=== PATIENT | female | born 1940 | race Two or more races ===

== ENCOUNTER 2019-03-13 16:04 | Inpatient (IN) | payer MEDICARE, OTHER ==
[~2019-03-13] VITALS: Ht 152.4 cm; Wt 63.0 kg
--- NOTE | 2019-03-13 16:32 | NUR ---
PT BROUGHT IN BY FAMILY FOR GENERALIZED WEAKNESS X 1 MONTH. PT ABLE TO MOVE UPPER EXTREMITIES BUT LOWER EXTREMITIES HAVE DECREASE IN STRENGTH OVER 1 MONTH PERIOD.
[2019-03-13] MEDS ORDERED: ACETAMINOPHEN 325 MG TABLET PO PRN (17:00)
[2019-03-13] MEDS ORDERED: MAG HYDROX/AL HYDROX/SIMETH 30 ML UDC PO PRN (17:00)
[2019-03-13] MEDS ORDERED: HYDROCODONE/APAP 5/325MG 1 EACH TABLET PO PRN (17:00)
[2019-03-13] MEDS ORDERED: ONDANSETRON HCL/PF 4 MG/2 ML VIAL IVP PRN (17:00)
[2019-03-13] MEDS ORDERED: MAGNESIUM HYDROXIDE 30 ML UDC PO PRN (17:00)
[2019-03-13] MEDS ORDERED: ZOLPIDEM TARTRATE 5 MG TABLET PO PRN (17:00)
[2019-03-13] MEDS ORDERED: Z GUARD REMEDY 2 OZ OINT TP PRN (17:00)
[2019-03-13] MEDS ORDERED: IV NS 0.9% 1,000 ML BAG IV ONE (17:00)
[2019-03-13] MEDS ORDERED: LORA10TA7 PO (17:36)
[2019-03-13] MEDS ORDERED: FLUT10.62 IH (17:36)
[2019-03-13] MEDS ORDERED: VASCULERA PO (17:36)
[2019-03-13] MEDS ORDERED: ERGO500040 PO (17:36)
[2019-03-13] MEDS ORDERED: DONE10TA44 PO (17:36)
[2019-03-13] MEDS ORDERED: Myrbetriq PO (17:36)
[2019-03-13 17:38] LABS: BASOPHILS % (AUTO) 0.5 % (0.0-2.0); EOSINOPHILS % (AUTO) 1.5 % (0.0-6.0); HEMATOCRIT 39 % (33-45); HEMOGLOBIN 12.8 g/dL (11.5-14.8); LYMPHOCYTES # (AUTO) 1.3 /CMM (0.8-4.8); LYMPHOCYTES % (AUTO) 14.7 % (20.0-44.0); MEAN CORPUSCULAR HGB CONC 33 g/dl (31.0-36.0); MEAN CORPUSCULAR VOLUME 91 fL (82-100); MONOCYTES # (AUTO) 0.7 /CMM (0.1-1.30); MONOCYTES % (AUTO) 8.1 % (2.0-12.0); NEUTROPHILS # (AUTO) 6.7 /CMM (1.8-8.9); NEUTROPHILS % (AUTO) 75.2 % (43.0-81.0); PLATELET COUNT (AUTO) 205 /CMM (150-450); RED BLOOD CELL COUNT(AUTO) 4.27 MIL/uL (4.0-5.2); WHITE BLOOD COUNT (AUTO) 8.9 K/uL (4.3-11.0)
[2019-03-13 17:46] LABS: CALCIUM, SERUM 8.2 mg/dL (8.5-10.1); CARBON DIOXIDE 29 mmol/L (21-32); CHLORIDE 105 mmol/L (98-107); CREATININE 0.8 mg/dL (0.6-1.3); GLUCOSE 96 mg/dL (74-106); POTASSIUM 3.6 mmol/L (3.5-5.1); SODIUM SERUM 142 mmol/L (136-145); UREA NITROGEN, BLOOD 15 mg/dL (7-18)
[2019-03-13 17:52] LABS: ALANINE AMINOTRANSFERASE 16 U/L (12-78); ALBUMIN 2.6 g/dL (3.4-5.0); ALKALINE PHOSPHATASE 118 U/L (46-116); ASPARTATE AMINOTRANSFERASE 24 U/L (15-37); BILIRUBIN,DIRECT 0.2 mg/dL (0.0-0.2); BILIRUBIN,TOTAL 0.7 mg/dL (0.2-1.0); TOTAL PROTEIN, SERUM 6.7 g/dL (6.4-8.2)
--- NOTE | 2019-03-13 19:13 | NUR ---
MS RN RECEIVING NOTE PT BROUGHT TO [place] FLOOR FROM ER VIA [place]. CC GENERALIZED WEAKNESS X 1 MONTH, ADMITTED FOR FAILURE TO THRIVE. PT ABLE TO MOVE UPPER EXTREMITIES BUT LOWER EXTREMITIES HAVE DECREASED IN STRENGTH OVER 1 MONTH PERIOD. PATIENT A/O X 2, HIGHLY ANXIOUS AND SLIGHTLY COMBATIVE WHEN FIRST ARRIVNG TO THE FLOOR.. NO SOB OR ACUTE CARDIAC/ RESPIRATORY DISTRESS NOTED. SKIN INTACT. LOWER LEGS PRESENT WITH DISCOLORATION AND PLUS 1 EDEMA BILATERALLY. L HAND # 22 SL INTACT AND PATENT. ON ROOM AIR. BELARUSIAN SPEAKING. V/S: BP 164/74, HR 116, RR 18, TEMP 97.8, 02 SAT 99%. PATIENT SON AT BEDSIDE. REGULAR DIET W/ ASPIRATION PRECAUTION PRN. CARE ENDORSED TO HOG SCALDER RN.
--- NOTE | 2019-03-13 19:44 | NUR ---
MS RN CLOSING NOTE PATIENT IN BED A/O X 2, NO SOB OR ACUTE CARDIAC/ RESPIRATORY DISTRESS NOTED. SKIN INTACT. LOWER LEGS PRESENT WITH DISCOLORATION AND PLUS 1 EDEMA BILATERALLY. L HAND # 22 SL INTACT AND PATENT. ON ROOM AIR. EAST TIMORESE SPEAKING. V/S: BP 164/74, HR 116, RR 18, TEMP 97.8, 02 SAT 99%. PATIENT SON AT BEDSIDE. REGULAR DIET W/ ASPIRATION PRECAUTION PRN. CARE ENDORSED TO FISCAL CLERK RN.
[2019-03-13 20:00] VITALS: BP 143/88
[2019-03-13] MEDS: IV D5/0.45 NACL 1,000 ML IV PRN (21:16)
[2019-03-14 04:00] VITALS: BP 142/76
--- NOTE | 2019-03-14 06:48 | NUR ---
MS RN NOTES AWAKE & RESPONSIVE. NOT IN ANY DISTRESS. NO SOB NOTED. DENIES ANY PAIN OR DISCOMFORT AT THIS TIME. WITH IVF INFUSING WELL. AM CARE DONE. MONITORED ACCORDINGLY. CALL LIGHT WITHIN REACH. BED IN LOWEST IN POSITION. SR UP X 3 WITH BED ALARM ON FOR SAFETY. WILL ENDORSE TO NEXT SHIFT.
--- NOTE | 2019-03-14 07:15 | NUR ---
RN NOTES RECEIVED PATIENT IN BED RESTING COMFORTABLY. ALERT AND ORIENTED X3. TURKISH SPEAKER. ABLE TO MAKE NEEDS KNOWN. NO PAIN OR ACUTE DISTRESS AT THIS TIME. RESPIRATION EVEN AND UNLABORED. SKIN IS DRY WARM TO TOUCH. PATIENT ON ROOM AIR ABLE TO TOLERATE WELL. NOTED WITH LEFT HAND IV ACCESS. PATENT AND FLUSHING WELL. NO S/S OF INFECTION OR INFILTRATION. PLAN OF CARE DISCUSSED. ALL NEEDS ANTICIPATED. CALL LIGHT WITHIN REACH. BED LOCKED AND IN LOWEST POSITION. WILL CONTINUE TO MONITOR.
[2019-03-14 07:17] LABS: BASOPHILS % (AUTO) 0.5 % (0.0-2.0); EOSINOPHILS % (AUTO) 1.6 % (0.0-6.0); HEMATOCRIT 34 % (33-45); HEMOGLOBIN 11.7 g/dL (11.5-14.8); LYMPHOCYTES # (AUTO) 1.6 /CMM (0.8-4.8); LYMPHOCYTES % (AUTO) 18.3 % (20.0-44.0); MEAN CORPUSCULAR HGB CONC 34 g/dl (31.0-36.0); MEAN CORPUSCULAR VOLUME 88 fL (82-100); MONOCYTES % (AUTO) 11.5 % (2.0-12.0); NEUTROPHILS % (AUTO) 68.1 % (43.0-81.0); PLATELET COUNT (AUTO) 200 /CMM (150-450); RED BLOOD CELL COUNT(AUTO) 3.87 MIL/uL (4.0-5.2); WHITE BLOOD COUNT (AUTO) 8.8 K/uL (4.3-11.0)
[2019-03-14 07:19] LABS: ALANINE AMINOTRANSFERASE 12 U/L (12-78); ALBUMIN 2.3 g/dL (3.4-5.0); ALKALINE PHOSPHATASE 106 U/L (46-116); ASPARTATE AMINOTRANSFERASE 20 U/L (15-37); BILIRUBIN,TOTAL 0.7 mg/dL (0.2-1.0); CARBON DIOXIDE 24 mmol/L (21-32); CHLORIDE 103 mmol/L (98-107); CREATININE 0.8 mg/dL (0.6-1.3); GLUCOSE 103 mg/dL (74-106); MAGNESIUM 1.9 mg/dL (1.8-2.4); PHOSPHORUS 2.8 mg/dL (2.5-4.9); POTASSIUM 3.4 mmol/L (3.5-5.1); SODIUM SERUM 135 mmol/L (136-145); TOTAL PROTEIN, SERUM 6.1 g/dL (6.4-8.2); UREA NITROGEN, BLOOD 15 mg/dL (7-18)
[2019-03-14 07:29] LABS: CHOLESTEROL 125 mg/dL (<200); HDL CHOLESTEROL 53 mg/dL (40-60); LDL 68 mg/dL (0-99); THYROID STIMULATING HORMONE 1.751 uIU/mL (0.358-3.74); TRIGLYCERIDES 56 mg/dL (30-150)
[2019-03-14 08:00] VITALS: BP 100/52
[2019-03-14] MEDS ORDERED: POTASSIUM CHLORIDE 20 MEQ TAB.PRT.SR PO SCH (10:00)
[2019-03-14 12:00] VITALS: BP 97/55
--- NOTE | 2019-03-14 14:00 | NUR ---
RN NOTES CALLED AND SPOKE TO DR. MARAVILLA REGARDING THE CONCERN OF THE SON OF HER MOM BEING ANXIOUS. DR. MARAVILLA ORDERED PSYCH CONSULT AND WITH ORDERS FOR XANAX 0.25MG BID. ALL ORDERS NOTED AND CARRIED OUT. WILL CONTINUE TO MONITOR.
[2019-03-14] MEDS: IV D5/0.45 NACL 1,000 ML IV PRN (14:54)
--- NOTE | 2019-03-14 15:15 | NUR ---
RN NOTES RECEIVED A CALL FROM [facility] TO DO MRSA SWAB. COLLECTED SPECIMEN ON THE RIGHT NOSTRIL. PLACED ON THE SPECIMEN FRIDGE WAITING FOR VINEYARDIST.
[2019-03-14 16:00] VITALS: BP 126/64
[2019-03-14] MEDS: ALPRAZOLAM 0.25 MG TABLET PO SCH (17:07)
--- NOTE | 2019-03-14 18:49 | NUR ---
RN CLOSING NOTES PATIENT IN BED AWAKE, ALERT AND ABLE TO MAKE NEEDS KNOWN. CALM AND RELAX AT THE MOMENT. SUDANESE SPEAKER. NO PAIN OR ACUTE DISTRESS AT THIS TIME. RESPIRATION EVEN AND UNLABORED. SKIN IS DRY WARM TO TOUCH. IV ACCESS ON LEFT HAND. PATENT AND FLUSHING WELL. NO S/S OF INFECTION OR INFILTRATION. PATIENT TOLERATED MEALS AND MEDS WELL. ALL NEEDS ANTICIPATED. KEPT CLEAN AND DRY CALL LIGHT WITHIN REACH. BED LOCKED AND IN LOW POSITION. SAFETY MEASURES OBSERVED. WILL CONTINUE TO MONITOR.
[2019-03-14 20:00] VITALS: BP 132/72
--- NOTE | 2019-03-14 20:00 | NUR ---
RN MS INITIAL NOTES PATIENT IN BED AWAKE, ALERT AND ABLE TO MAKE NEEDS KNOWN. ALL NEEDS MET. BULGARIAN SPEAKER. NO PAIN OR ACUTE DISTRESS AT THIS TIME. RESPIRATION EVEN AND UNLABORED. SKIN IS DRY WARM TO TOUCH. IV ACCESS ON LEFT HAND. PATENT AND FLUSHING WELL. NO S/S OF INFECTION OR INFILTRATION. PATIENT TOLERATED MEALS AND MEDS WELL. ALL NEEDS ANTICIPATED. KEPT CLEAN AND DRY CALL LIGHT WITHIN REACH. BED LOCKED AND IN LOW POSITION. SAFETY MEASURES OBSERVED. WILL CONTINUE TO MONITOR.
[2019-03-15] MEDS: IV D5/0.45 NACL 1,000 ML IV PRN (04:51)
--- NOTE | 2019-03-15 06:17 | NUR ---
RN MS CLOSING NOTES ENDORSED PATIENT IN BED AWAKE, ALERT AND ABLE TO MAKE NEEDS KNOWN. ALL NEEDS MET. PASHTO SPEAKER. NO PAIN OR ACUTE DISTRESS AT THIS TIME. RESPIRATION EVEN AND UNLABORED. SKIN IS DRY WARM TO TOUCH. IV ACCESS ON LEFT HAND. PATENT AND FLUSHING WELL. NO S/S OF INFECTION OR INFILTRATION. PATIENT TOLERATED MEALS AND MEDS WELL. ALL NEEDS ANTICIPATED. KEPT CLEAN AND DRY CALL LIGHT WITHIN REACH. BED LOCKED AND IN LOW POSITION. SAFETY MEASURES OBSERVED. WILL CONTINUE TO MONITOR.
--- NOTE | 2019-03-15 07:30 | NUR ---
RN NOTES RECEIVED PATIENT, AWAKE, ALERT AND ORIENTED X3.ABLE TO MAKE NEEDS KNOWN BUT EXPRESSES SELF BETTER IN ROMANSH. ON RA, TOLERATING WELL, NO SOB NOTED. BREATHING EVEN AND UNLABORED. NOT ON ANY FORM OF DISTRESS. NO COMPLAINTS OF PAIN OF ANY KIND. IV SITE LH 20G: INTACT AND IN PLACE, PATENT ON FLUSHING, NO S/S OF INFECTION, SALINE LOCKED. ENSURED SAFETY MEASURES. BED LOW AND LOCK POSITION. SRX2 RAISED. CALL LIGHT WITHIN REACHED. WILL ANTICIPATE NEEDS AND CONTINUE TO MONITOR
[2019-03-15 08:00] VITALS: BP 123/67
[2019-03-15] MEDS: ALPRAZOLAM 0.25 MG TABLET PO SCH ×2 (08:56→17:42)
[2019-03-15 16:00] VITALS: BP 146/75
--- NOTE | 2019-03-15 18:00 | NUR ---
RN NOTES FOLLOWED UP CONSULT WITH DR. HERNANDEZ, FOR PSYCH CONSULT. PER MARYANN NO FACE SHEET WAS RECEIVED. FACE SHEET FAXED.
--- NOTE | 2019-03-15 19:07 | NUR ---
RN NOTES ENDORSED PATIENT FOR CONTINUITY OF CARE. NO ACUTE CHANGES WITHIN THE SHIFT. NOT ON ANY FORM OF DISTRESS. ALL NURSING NEEDS ATTENDED AND MET. SAFETY MEASURES IN PLACE AT ALL TIME. CALL LIGHT WITHIN REACH.
--- NOTE | 2019-03-15 19:55 | NUR ---
RN MS INITIAL NOTES PATIENT IN BED AWAKE, ALERT AND ABLE TO MAKE NEEDS KNOWN. ALL NEEDS MET. ESTONIAN SPEAKER. NO PAIN OR ACUTE DISTRESS AT THIS TIME. RESPIRATION EVEN AND UNLABORED. SKIN IS DRY WARM TO TOUCH. IV ACCESS ON LEFT HAND. PATENT AND FLUSHING WELL. NO S/S OF INFECTION OR INFILTRATION. PATIENT TOLERATED MEALS AND MEDS WELL. ALL NEEDS ANTICIPATED. KEPT CLEAN AND DRY CALL LIGHT WITHIN REACH. BED LOCKED AND IN LOW POSITION. SAFETY MEASURES OBSERVED. WILL CONTINUE TO MONITOR.
--- NOTE | 2019-03-16 06:28 | NUR ---
RN MS CLOSING NOTES PATIENT IN BED AWAKE, ALERT AND ABLE TO MAKE NEEDS KNOWN. ALL NEEDS MET. NEPALI SPEAKER. NO PAIN OR ACUTE DISTRESS AT THIS TIME. RESPIRATION EVEN AND UNLABORED. SKIN IS DRY WARM TO TOUCH. IV ACCESS ON LEFT HAND. PATENT AND FLUSHING WELL. NO S/S OF INFECTION OR INFILTRATION. PATIENT TOLERATED MEALS AND MEDS WELL. ALL NEEDS ANTICIPATED. KEPT CLEAN AND DRY CALL LIGHT WITHIN REACH. BED LOCKED AND IN LOW POSITION. SAFETY MEASURES OBSERVED. WILL CONTINUE TO MONITOR.
[2019-03-16] MEDS: IV D5/0.45 NACL 1,000 ML IV PRN (07:06)
[2019-03-16 08:00] VITALS: BP 136/69
--- NOTE | 2019-03-16 08:00 | NUR ---
MS RN OPENING NOTES PATIENT RECEIVED IN BED AWAKE, ALERT AND ABLE TO MAKE NEEDS KNOWN. FAROESE SPEAKING, A/O X 2-3, NO PAIN OR ACUTE DISTRESS NOTED. RESPIRATION EVEN AND UNLABORED. SKIN IS DRY WARM TO TOUCH. L HAND #22 IV SL INTACT AND PATENT. ALL NEEDS ANTICIPATED. KEPT CLEAN AND DRY. SAFETY MEASURES IN PLACE. CALL LIGHT WITHIN REACH. BED LOCKED AND IN LOW POSITION. WILL CONTINUE TO MONITOR.
[2019-03-16] MEDS: ALPRAZOLAM 0.25 MG TABLET PO SCH ×2 (09:23→16:34)
[2019-03-16 16:00] VITALS: BP 148/90
--- NOTE | 2019-03-16 18:26 | NUR ---
MS BIOLOGICS SPECIALIST NOTE PATIENT D/C VIA GURNEY TRANSPORT TO [facility]. FAMILY MEMBER NOTIFIED AND CONFIRMED HE WOULD BE AT SNF TO RECEIVE PATIENT. PATIENT A/O X 2-3, NO SOB OR ACUTE DISTRESS NOTED. PATIENT CLEAN AND DRY. BELONGINGS LIST COMPLETED. NO TELE MONITOR ON PATIENT. V/S WNL. REPORT GIVEN TO IZAIAH CENTENO AT FACILITY.
[2019-03-16] MEDS ORDERED: MIRTAZAPINE 15 MG TABLET PO SCH (22:00)
== END 2019-03-16 17:50 | DRG 640 ==
LOC: ER 16:04 → MEDSG1 18:22
PROVIDERS: ADMIT Internal Medicine; ATTEND Internal Medicine
DX: E86.0 Dehydration (principal); G93.41 Metabolic encephalopathy; R62.7 Adult failure to thrive; G30.9 Alzheimer's disease, unspecified; F02.80 Dementia in other diseases classified elsewhere, unspecified severity, without behavioral disturbance, psychotic disturbance, mood disturbance, and anxiety; I10 Essential (primary) hypertension; R53.1 Weakness; M19.90 Unspecified osteoarthritis, unspecified site; Z96.653 Presence of artificial knee joint, bilateral; F32.9 Major depressive disorder, single episode, unspecified; G62.9 Polyneuropathy, unspecified; F41.9 Anxiety disorder, unspecified
CPT/HCPCS: 36415; 71045-TC; 80048-TC; 80053-TC; 80061-TC; 80076-TC; 83735-TC; 84100-TC; 84443-TC; 84484-TC; 85025-TC; 87081-TC; 97110-TC; 97530-TC; G0378; J3490; J7030

== ENCOUNTER 2019-04-06 00:17 | Inpatient (IN) | payer MEDICARE, OTHER ==
[~2019-04-06] VITALS: Ht 152.4 cm; Wt 69.9 kg
[~2019-04-06 00:17] MED LIST: DONE10TA44 PO; ERGO500040 PO; FLUT10.62 IH; LORA10TA7 PO; Myrbetriq PO; VASCULERA PO
--- NOTE | 2019-04-06 00:25 | NUR ---
PT [id number] FROM [facility] C/O "WORSENING COUGH", DX W/PNEUMONIA X 10 DAYS AGO. NAD NOTED. RESP EVEN AND UNLABORED. PT AOX1. SON AT BEDSIDE. PT ON MONITOR IN BED 11. WILL CONTINUE TO MONITOR.
[2019-04-06] MEDS ORDERED: IV NS 0.9% 500 ML BAG IV ONE (00:30)
--- NOTE | 2019-04-06 00:41 | NUR ---
TECH AT BEDSIDE FOR EKG
--- NOTE | 2019-04-06 00:41 | NUR ---
BLOOD DRAWN AND GIVEN TO LAB
[2019-04-06 00:46] LABS: BASOPHILS % (AUTO) 0.5 % (0.0-2.0); EOSINOPHILS % (AUTO) 2.6 % (0.0-6.0); HEMATOCRIT 36 % (33-45); HEMOGLOBIN 11.9 g/dL (11.5-14.8); LYMPHOCYTES # (AUTO) 1.7 /CMM (0.8-4.8); MEAN CORPUSCULAR HGB CONC 34 g/dl (31.0-36.0); MEAN CORPUSCULAR VOLUME 88 fL (82-100); MONOCYTES # (AUTO) 0.8 /CMM (0.1-1.30); MONOCYTES % (AUTO) 9.4 % (2.0-12.0); NEUTROPHILS # (AUTO) 5.6 /CMM (1.8-8.9); NEUTROPHILS % (AUTO) 67.5 % (43.0-81.0); PLATELET COUNT (AUTO) 310 /CMM (150-450); RED BLOOD CELL COUNT(AUTO) 4.06 MIL/uL (4.0-5.2); WHITE BLOOD COUNT (AUTO) 8.3 K/uL (4.3-11.0)
--- NOTE | 2019-04-06 00:46 | NUR ---
RT AT BEDSIDE FOR ABGs
[2019-04-06 00:58] LABS: CALCIUM, SERUM 8.7 mg/dL (8.5-10.1); CARBON DIOXIDE 28 mmol/L (21-32); CHLORIDE 101 mmol/L (98-107); CREATININE 0.7 mg/dL (0.6-1.3); GLUCOSE 108 mg/dL (74-106); POTASSIUM 3.1 mmol/L (3.5-5.1); SODIUM SERUM 137 mmol/L (136-145); UREA NITROGEN, BLOOD 19 mg/dL (7-18)
--- NOTE | 2019-04-06 01:02 | NUR ---
RADIOLOGY AT BEDSIDE FOR CXR
[2019-04-06 01:09] LABS: ALANINE AMINOTRANSFERASE 19 U/L (12-78); ALBUMIN 2.2 g/dL (3.4-5.0); ALKALINE PHOSPHATASE 152 U/L (46-116); ASPARTATE AMINOTRANSFERASE 28 U/L (15-37); B-TYPE NATRIURETIC PEPTIDE 387 PG/ML (0-125); BILIRUBIN,DIRECT 0.1 mg/dL (0.0-0.2); BILIRUBIN,TOTAL 0.5 mg/dL (0.2-1.0); TOTAL PROTEIN, SERUM 7.2 g/dL (6.4-8.2)
[2019-04-06] MEDS ORDERED: IV PREMIX D5 1/2NS + KCL 1,000 ML IV ONE ×2 (02:02→02:35)
[2019-04-06] MEDS ORDERED: LEVOFLOXACIN 500 MG /D5W 100ML 500 MG/100 ML PIGGYBACK IV ONE (02:30)
--- NOTE | 2019-04-06 02:31 | NUR ---
PT TAKEN TO RADIOLOGY FOT CT VIA [facility]
--- NOTE | 2019-04-06 03:00 | NUR ---
PT RETURNED FROM CT. TOLERATED WELL. SON AT BEDSIDE.
--- NOTE | 2019-04-06 03:49 | NUR ---
MADHURI CALLED FOR CT READ.
[2019-04-06] MEDS ORDERED: LEVOFLOXACIN 500 MG /D5W 100ML 100 ML IV ONE (04:04)
--- NOTE | 2019-04-06 05:18 | NUR ---
Kael called Dr. Canchola pagemelecio.
--- NOTE | 2019-04-06 06:10 | NUR ---
BED 328
[2019-04-06] MEDS ORDERED: MAG HYDROX/AL HYDROX/SIMETH 30 ML UDC PO PRN (06:30)
[2019-04-06] MEDS ORDERED: CEFEPIME 1 GM in IV NS 0.9% 50 ML IV SCH (06:30)
[2019-04-06] MEDS ORDERED: FLUTICASONE PROPIONATE IH SCH (06:30)
[2019-04-06] MEDS ORDERED: Z GUARD REMEDY 2 OZ OINT TP PRN (06:30)
[2019-04-06] MEDS ORDERED: MAGNESIUM HYDROXIDE 30 ML UDC PO PRN (06:30)
[2019-04-06] MEDS ORDERED: ACETAMINOPHEN 325 MG TABLET PO PRN (06:30)
[2019-04-06] MEDS ORDERED: ONDANSETRON HCL/PF 4 MG/2 ML VIAL IVP PRN (06:30)
[2019-04-06] MEDS ORDERED: ZOLPIDEM TARTRATE 5 MG TABLET PO PRN (06:30)
[2019-04-06] MEDS ORDERED: HYDROCODONE/APAP 5/325MG 1 EACH TABLET PO PRN (06:30)
--- NOTE | 2019-04-06 06:35 | NUR ---
BED 327-2
--- NOTE | 2019-04-06 06:52 | NUR ---
REPORT GIVEN TO IZAIAH CHAVEZ FOR RAFAELA
--- NOTE | 2019-04-06 07:20 | NUR ---
GRAIN OPERATOR NOTES RECEIVED PATIENT FROM ER VIA GURNEY ACCOMPANIED BY 2 FEMALE STAFF AND SON ON BEDSIDE FOR PNA. PATIENT RESIDES AT [facility] PRIOR TO HOSPITALIZATION. A/OX 3WITH POLISH SPEAKING ONLY. RESPIRATION EVEN AND NON LABORED WITH NO ACUTE RESPIRATORY DISTRESS, ON 3L MASK AND TOLERATED WELL. ABDOMEN SOFT AND NON DISTENDED WITH ACTIVE BOWEL SOUNDS. DENIES PAIN AND DISCOMFORT. SKIN WARM TO TOUCH AND DRY. IV SITE AT RIGHT AC RUNNING D5 1/2 NS WITH 20 MEW KCL AND LEFT AC WITH NO S/SX OF INFILTRATION. TELE MONITOR SHOWS SINUS RHYTHM AT 83. ALL CONCERNS ADDRESSED. PLACED CALL LIGHT WITHIN REACH FOR SAFETY. WILL CONTINUE TO EVALUATE CARE.
[2019-04-06 08:45] VITALS: BP_SYST 127; BP_SYST 96; BP_DIAS 64; BP_DIAS 66
[2019-04-06] MEDS ORDERED: FEE PK DOSING 1 MIN EA MC ONE (09:06)
--- NOTE | 2019-04-06 09:30 | NUR ---
M/S RN NOTES CALLED SARITA (SON) REGARDING MEDICATION OF VASCULERA AND MYRBETRIQ TO GET FROM STOCK AT HOME DUE TO UNAVAILABILITY IN PHARMACY. SON WILL BRING IT OVER. CALL BACK NUMBER OF SON [phone].
[2019-04-06] MEDS: LORATADINE 10 MG TABLET PO SCH (09:42)
[2019-04-06] MEDS: CEFEPIME 2 GM in IV D5W 100 ML IV SCH (09:42)
[2019-04-06] MEDS: VANCOMYCIN 1 GM in IV D5W 250 ML IV SCH (09:42)
[2019-04-06] MEDS ORDERED: POTASSIUM CHLORIDE 20 MEQ TAB.PRT.SR PO SCH (11:30)
[2019-04-06] MEDS: IPRATROPIUM NEB FS 0.5 MG/2.5 ML AMPUL.NEB NEB SCH ×3 (11:30→19:47)
[2019-04-06] MEDS: ALBUTEROL HALF STRENGTH 1.25 MG/3 ML VIAL.NEB NEB SCH ×3 (11:31→19:47)
--- NOTE | 2019-04-06 15:20 | NUR ---
M/S RN NOTES REFER TO [employer] CLAIMS ADJUSTOR REGARDING PATIENT POOR APPETITE FOR BREAKFAST AND LUNCH TODAY. REQUESTED BY SON FOR ENSURE SINCE PATIENT WAS TAKING IT AT GROUP HOME. OBTAINED NEW ORDER OF ENSURE 1 CAN PO TIF WITH MEAL. ORDER READ BACK, NOTED AND CARRIED OUT. PATIENT NOTIFIED.
--- NOTE | 2019-04-06 15:29 | NUR ---
M/S RN NOTES ASSESSED PATIENT WITH WARM SKIN WITH TEARY RED EYES. TEMPERATURE OF 98.8. ADMINISTERED TYLENOL ORDERED AND WILL RE-ASSESS FOR EFFECTIVENESS.
--- NOTE | 2019-04-06 16:04 | NUR ---
M/S RN NOTES JUANA;UIATED TEMPERATURE WITH 96.4 AFTER GIVING TYLENOL 325 MG 2 TABS ORDERED. KEPT ROOM WARM. PATIENT STATED COMFORTABLE AT THIS TIME
[2019-04-06 18:00] VITALS: BP 114/60
[2019-04-06] MEDS ORDERED: ENSURE ENLIVE 237 ML LIQUID (VANILLA) PO SCH (18:00)
[2019-04-06] MEDS ORDERED: VASCULERA 630 MG PO SCH (18:00)
--- NOTE | 2019-04-06 18:30 | NUR ---
M/S RN NOTES ENSURE VANILLA FOLLOWED UP WITH [facility]. STATED TO PLACE ORDER UNDER [facility], NOT MEDICATION SO THEY CAN DELIVER ENSURE ON THE FLOOR. ORDER MADE UNDER [facility] AND MEDICATION. ENSURE VANILLA 237 ML GIVEN TO PATIENT ORDERED WITH MEALS.
--- NOTE | 2019-04-06 18:46 | NUR ---
M/S RN CLOSING NOTES PATIENT ON BED, LEFT SIDE LYING POSITION. A/O X 3 AND ABLE TO MAKE NEEDS KNOWN, HUNGARIAN SPEAKING ONLY. RESPIRATION EVEN AND NON LABORED, PRODUCTIVE COUGH OF THICK YELLOW MUCUS, O2 AT 2LPM VIA N/C. NO PRESENCE OF ACUTE RESPIRATORY DISTRESS. ABDOMEN SOFT AND NON DISTENDED WITH ACTIVE BOWEL SOUNDS. DENIES PAIN AND DISCOMFORT. IV SITE ON BOTH FOREARMS PATENT IN FLUSHING, NO S/SX OF INFILTRATION. ALL CONCERNS ATTENDED. PLACED CALL LIGHT WITHIN REACH FOR SAFETY AND ASSISTANCE. ENDORSED PATIENT CARE TO NEXT SHIFT.
--- NOTE | 2019-04-06 19:45 | NUR ---
MS RN NOTE: PATIENT RESTING IN BED NO ACUTE DISTRESS NOTED. BREATHING EVEN AND UNLABORED, NO SOB NOTED. IV TO LFA AND RFA IN PLACE. BED LOCKED AND IN LOWEST POSITION, CALL LIGHT IN REACH. WILL CONTINUE TO MONITOR.
[2019-04-06 20:00] VITALS: BP 106/57
[2019-04-06] MEDS: DONEPEZIL 5 MG TABLET PO SCH (21:28)
--- NOTE | 2019-04-06 21:45 | NUR ---
MS RN NOTE: PATIENT COMPLAINS OF BACK PAIN 05/08, NORCO 5/325MG 1 TAB ORAL GIVEN PER MD ORDER. WILL CONTINUE TO MONITOR.
[2019-04-07] MEDS: IPRATROPIUM NEB FS 0.5 MG/2.5 ML AMPUL.NEB NEB SCH ×4 (01:53→20:03)
[2019-04-07] MEDS: ALBUTEROL HALF STRENGTH 1.25 MG/3 ML VIAL.NEB NEB SCH ×4 (01:53→20:03)
[2019-04-07] MEDS: VANCOMYCIN 1 GM in IV D5W 250 ML IV SCH ×2 (02:42→21:02)
--- NOTE | 2019-04-07 06:15 | NUR ---
MS RN NOTE: PATIENT RESTING IN BED NO ACUTE DISTRESS NOTED. BREATHING EVEN AND UNLABORED, NO SOB NOTED. IV TO LFA AND RFA IN PLACE. BED LOCKED AND IN LOWEST POSITION, CALL LIGHT IN REACH. WILL ENDORSE TO DAY NURSE TO CONTINUE WITH PLAN OF CARE.
[2019-04-07 06:21] LABS: BASOPHILS % (AUTO) 0.5 % (0.0-2.0); EOSINOPHILS % (AUTO) 4.5 % (0.0-6.0); HEMATOCRIT 34 % (33-45); HEMOGLOBIN 11.1 g/dL (11.5-14.8); LYMPHOCYTES # (AUTO) 1.3 /CMM (0.8-4.8); LYMPHOCYTES % (AUTO) 16.9 % (20.0-44.0); MEAN CORPUSCULAR HGB CONC 33 g/dl (31.0-36.0); MEAN CORPUSCULAR VOLUME 88 fL (82-100); MONOCYTES # (AUTO) 0.9 /CMM (0.1-1.30); NEUTROPHILS # (AUTO) 5.3 /CMM (1.8-8.9); NEUTROPHILS % (AUTO) 67.1 % (43.0-81.0); PLATELET COUNT (AUTO) 270 /CMM (150-450); RED BLOOD CELL COUNT(AUTO) 3.83 MIL/uL (4.0-5.2); WHITE BLOOD COUNT (AUTO) 7.9 K/uL (4.3-11.0)
[2019-04-07 06:43] LABS: CALCIUM, SERUM 8.7 mg/dL (8.5-10.1); CARBON DIOXIDE 28 mmol/L (21-32); CHLORIDE 102 mmol/L (98-107); CREATININE 0.6 mg/dL (0.6-1.3); GLUCOSE 77 mg/dL (74-106); MAGNESIUM 1.9 mg/dL (1.8-2.4); PHOSPHORUS 3.3 mg/dL (2.5-4.9); POTASSIUM 3.8 mmol/L (3.5-5.1); SODIUM SERUM 136 mmol/L (136-145); UREA NITROGEN, BLOOD 11 mg/dL (7-18)
[2019-04-07 06:44] LABS: CHOLESTEROL 132 mg/dL (<200); HDL CHOLESTEROL 55 mg/dL (40-60); LDL 66 mg/dL (0-99); TRIGLYCERIDES 63 mg/dL (30-150)
[2019-04-07 08:00] VITALS: BP 133/69
[2019-04-07] MEDS ORDERED: ENSURE ENLIVE 237 ML LIQUID (VANILLA) PO SCH (08:00)
[2019-04-07] MEDS: LORATADINE 10 MG TABLET PO SCH (09:06)
[2019-04-07] MEDS: CEFEPIME 2 GM in IV D5W 100 ML IV SCH (09:06)
[2019-04-07] MEDS: ENSURE ENLIVE 237 ML LIQUID (VANILLA) PO SCH ×3 (09:07→18:41)
[2019-04-07 10:16] LABS: BAND % (MANUAL) 4 % (0.0-5.0); EOSINOPHILS % (MANUAL) 6 % (0-4); LYMPHOCYTES % (MANUAL) 14 % (16-48); MONOCYTES % (MANUAL) 7 % (0-11.0); MYELOCYTES % 1 % (0-0); NEUTROPHILS % (MANUAL) 68 (42-76)
[2019-04-07 16:00] VITALS: BP 127/79
[2019-04-07] MEDS: LACTOBACILLUS RHAMNOSUS GG 1 EACH CAP.SPRINK PO SCH (18:41)
--- NOTE | 2019-04-07 19:10 | NUR ---
MS RN NOTE RECEIVED PT IN STABLE CONDITION A&O X3. CURRENTLY IN BED WATCHING TV. NO SIGNS OF SOB OR DISTRESS, NO C/O PAIN. IV IN RFA IN PLACE. ALL CURRENT NEEDS MET. BED LOW, LOCKED, UPPER RAILS UP, AND CALL LIGHT WITHIN REACH. WILL CONT. TO MONITOR.
[2019-04-07] MEDS: DONEPEZIL 5 MG TABLET PO SCH (21:02)
[2019-04-08] MEDS: IPRATROPIUM NEB FS 0.5 MG/2.5 ML AMPUL.NEB NEB SCH ×4 (01:22→19:26)
[2019-04-08] MEDS: ALBUTEROL HALF STRENGTH 1.25 MG/3 ML VIAL.NEB NEB SCH ×4 (01:22→19:26)
--- NOTE | 2019-04-08 06:59 | NUR ---
MS RN NOTE PT IN STABLE CONDITION A&O X3. CURRENTLY IN BED WATCHING TV. NO SIGNS OF SOB OR DISTRESS, NO C/O PAIN. IV IN RFA IN PLACE. ALL CURRENT NEEDS MET. BED LOW, LOCKED, UPPER RAILS UP, AND CALL LIGHT WITHIN REACH. WILL CONT. TO MONITOR AND ENDORSE TO NEXT SHIFT FOR RAFAELA.
--- NOTE | 2019-04-08 07:15 | NUR ---
RN OPENING NOTE PT WAS RECEIVED IN BED AT LOWEST AND LOCKED POSITION WITH SIDE RAILS X2, A/O 3 ARMENIAN SPEAKING, CURRENTLY RECEIVING BREATHING TREATMENT WITH NO S/S OF ANY DISTRESS OR PAIN, IV IS CURRENTLY PATENT AND INTACT, SAFETY PRECAUTIONS IN PLACE, CALL LIGHT WITHIN REACH, WILL MONITOR PT ACCORDINGLY
[2019-04-08 08:00] VITALS: BP 117/70
[2019-04-08] MEDS: LACTOBACILLUS RHAMNOSUS GG 1 EACH CAP.SPRINK PO SCH ×2 (08:47→17:12)
[2019-04-08] MEDS: LORATADINE 10 MG TABLET PO SCH (08:47)
[2019-04-08] MEDS: ENSURE ENLIVE 237 ML LIQUID (VANILLA) PO SCH ×3 (08:47→17:13)
[2019-04-08] MEDS ORDERED: MYRBETRIQ 50 MG PO SCH (09:00)
[2019-04-08] MEDS: CEFEPIME 2 GM in IV D5W 100 ML IV SCH (09:00)
[2019-04-08 09:07] LABS: CARBON DIOXIDE 25 mmol/L (21-32); CHLORIDE 100 mmol/L (98-107); CREATININE 0.6 mg/dL (0.6-1.3); GLUCOSE 118 mg/dL (74-106); POTASSIUM 3.6 mmol/L (3.5-5.1); SODIUM SERUM 133 mmol/L (136-145); UREA NITROGEN, BLOOD 15 mg/dL (7-18)
--- NOTE | 2019-04-08 09:15 | NUR ---
WOUND CARE CONSULT: PT PRESENTS WITH INCONTINENCE, BILATERAL HEEL DRY ESCHARS AND RAISED AREA TO RT UPPER ABDOMEN, ALL PRESENT ON ADMISSION. RECOMMEND DPM CONSULT FOR HEELS. DEFER TO MD FOR RT UPPER ABDOMEN RAISED AREA WITH MARKER INK NOTED ON EDGES. RECOMMENDATIONS MADE FOR SKIN PROTECTION. DISCUSSED WITH NURSING STAFF. WILL SEE PRN. IN AGREEMENT WITH PLAN OF CARE. Addendum: 04/08/19 at 0917 by ZEN VAZQUEZU Amended: Links added. Addendum: 04/08/19 at [address] MCGOWAN NOTIFIED OF DPM CONSULT REQUEST.
[2019-04-08] MEDS: VANCOMYCIN 1 GM in IV D5W 250 ML IV SCH (15:22)
[2019-04-08 16:00] VITALS: BP 102/61
--- NOTE | 2019-04-08 17:00 | NUR ---
RN NOTE PT WAS GIVEN PRUNE JUICE AND MAALOX FOR COMPLAINT OF CONSTIPATION AND STATING NOT POOPING IS BOTHERING HER, WILL MONITOR ACCORDINGLY
--- NOTE | 2019-04-08 18:31 | NUR ---
RN CLOSING NOTE PT IN BED AT LOWEST AND LOCKED POSITION WITH SIDE RAILS X2, A/O 3 FAROESE SPEAKING, CURRENTLY RECEIVING BREATHING TREATMENT WITH NO S/S OF ANY DISTRESS OR PAIN, IV IS CURRENTLY PATENT AND INTACT, SAFETY PRECAUTIONS IN PLACE, CALL LIGHT WITHIN REACH, ALL NEEDS ATTENDED TO, WILL ENDORSE TO QUILTER FIXER RN FOR RAFAELA.
--- NOTE | 2019-04-08 19:15 | NUR ---
MS RN NOTE RECEIVED PT IN STABLE CONDITION A&O X 2-3. CURRENTLY IN BED WATCHING TV. NO SIGNS OF SOB OR DISTRESS, NO C/O PAIN. RFA IV IN PLACE. ALL CURRENT NEEDS MET. BED LOW, LOCKED, UPPER RAILS UP AND CALL LIGHT WITHIN REACH. WILL CONT. TO MONITOR.
[2019-04-08 20:00] VITALS: BP 118/68
[2019-04-08] MEDS: DONEPEZIL 5 MG TABLET PO SCH (21:23)
[2019-04-09] MEDS: ALBUTEROL HALF STRENGTH 1.25 MG/3 ML VIAL.NEB NEB SCH ×3 (01:24→13:30)
[2019-04-09] MEDS: IPRATROPIUM NEB FS 0.5 MG/2.5 ML AMPUL.NEB NEB SCH ×3 (01:24→13:30)
[2019-04-09] MEDS: VANCOMYCIN 0.75 GM in IV D5W 250 ML IV SCH ×2 (02:19→14:16)
--- NOTE | 2019-04-09 06:33 | NUR ---
MS RN NOTE PT IN STABLE CONDITION A&O X 2-3. CURRENTLY RESTING IN BED. NO SIGNS OF SOB OR DISTRESS, NO C/O PAIN. RFA IV IN PLACE. ALL CURRENT NEEDS MET. BED LOW, LOCKED, UPPER RAILS UP AND CALL LIGHT WITHIN REACH. WILL CONT. TO MONITOR AND ENDORSE TO NEXT SHIFT FOR RAFAELA.
[2019-04-09 07:30] LABS: CALCIUM, SERUM 8.3 mg/dL (8.5-10.1); CARBON DIOXIDE 29 mmol/L (21-32); CHLORIDE 101 mmol/L (98-107); CREATININE 0.6 mg/dL (0.6-1.3); GLUCOSE 100 mg/dL (74-106); POTASSIUM 3.7 mmol/L (3.5-5.1); SODIUM SERUM 135 mmol/L (136-145); UREA NITROGEN, BLOOD 12 mg/dL (7-18)
--- NOTE | 2019-04-09 07:35 | NUR ---
MS/RN - Assessment Patient is awake, A/O x 2-3, Citizen Of [place] speaking, no complaints overnight, denies pain at this time, no apparent distress noted, afebrile, on oxygen at 2lpm via NC. Saline lock on the left hand is patent, intact, with no signs of infiltration. Labs reviewed no critical results. Fall and aspiration precautions maintained. Plan of care discussed with patient and in agreement. Will continue with current medical management.
[2019-04-09 08:00] VITALS: BP 128/54
[2019-04-09] MEDS: ENSURE ENLIVE 237 ML LIQUID (VANILLA) PO SCH ×2 (08:09→12:47)
[2019-04-09] MEDS: LACTOBACILLUS RHAMNOSUS GG 1 EACH CAP.SPRINK PO SCH (08:40)
[2019-04-09] MEDS: LORATADINE 10 MG TABLET PO SCH (08:40)
[2019-04-09] MEDS: CEFEPIME 2 GM in IV D5W 100 ML IV SCH (09:30)
--- NOTE | 2019-04-09 11:30 | NUR ---
MS/RN - S/b Dr. Hollingsworth Seen and examined by Dr. Hollingsworth. Per [place] to discharge back to SNF, repeat thyroid ultrasound in 12 months.
[2019-04-09] MEDS ORDERED: AMOX-427 PO (11:41)
--- NOTE | 2019-04-09 14:00 | NUR ---
MS/RN - Notes Jonatan Maya at bedside agreeable to return back to [facility].
--- NOTE | 2019-04-09 16:05 | NUR ---
MS/RN - Discharge Patient feeling better, A/O x 2, discharged to [facility] in stable condition. Reviewed discharge instructions with IZAIAH Eastman and he verbalized full understanding and all questions answered to his satisfaction. All personal belongings sent home with jose de jesus Maya. VSS, denies pain, afebrile, no c/o SOB, on oxygen at 2lpm via NC, no apparent distress seen. No fall/injury during hospital stay. Patient refused discharge photos to be taken on her skin breakdown. Discharge papers sent with ambulance crew. Jose De Jesus Maya aware of discharge.
[2019-04-10] MEDS ORDERED: ERGOCALCIFEROL (VITAMIN D 2) 50,000 UNIT CAPSULE PO SCH (09:00)
== END 2019-04-09 16:05 | DRG 193 ==
LOC: ER 00:17 → TELE 06:30 → MED 08:34
PROVIDERS: ADMIT Hospitalist; ATTEND Student in an Organized Health Care Education/Training Program
DX: J15.9 Unspecified bacterial pneumonia (principal); G92 Toxic encephalopathy; E44.1 Mild protein-calorie malnutrition; J44.0 Chronic obstructive pulmonary disease with (acute) lower respiratory infection; J44.1 Chronic obstructive pulmonary disease with (acute) exacerbation; E87.1 Hypo-osmolality and hyponatremia; J98.11 Atelectasis; J90 Pleural effusion, not elsewhere classified; E87.6 Hypokalemia; G30.9 Alzheimer's disease, unspecified; F02.80 Dementia in other diseases classified elsewhere, unspecified severity, without behavioral disturbance, psychotic disturbance, mood disturbance, and anxiety; F09 Unspecified mental disorder due to known physiological condition; F41.0 Panic disorder [episodic paroxysmal anxiety]; Z96.653 Presence of artificial knee joint, bilateral; Z96.649 Presence of unspecified artificial hip joint; Z87.891 Personal history of nicotine dependence; Z86.718 Personal history of other venous thrombosis and embolism; Z79.51 Long term (current) use of inhaled steroids; Z74.01 Bed confinement status; I10 Essential (primary) hypertension; K82.8 Other specified diseases of gallbladder; E11.51 Type 2 diabetes mellitus with diabetic peripheral angiopathy without gangrene; E04.1 Nontoxic single thyroid nodule; L89.629 Pressure ulcer of left heel, unspecified stage; L89.619 Pressure ulcer of right heel, unspecified stage
CPT/HCPCS: 36415; 36600; 71045-TC; 76536-TC; 76705-TC; 80048-TC; 80061-TC; 80076-TC; 80202-TC; 82803-TC; 83605-TC; 83735-TC; 83880; 84100-TC; 84484-TC; 85025-TC; 87040-TC; 87070-TC; 87081-TC; 87400; 93307-TC; 93970-TC; 94799-TC; 97112-TC; 97530-TC; A4216; G0378; J0692; J1956; J3370; J3490; J7040; J7050; J7060; J7120

== ENCOUNTER 2021-05-22 02:30 | Emergency (ER) | payer MEDICARE, OTHER ==
[~2021-05-22] VITALS: Ht 152.4 cm; Wt 69.9 kg
[~2021-05-22 02:30] MED LIST changes: +AMOX-427 PO
--- NOTE | 2021-05-22 02:37 | NUR ---
PATIENT CAME TO THE ER BED 8 [facility] FROM [facility] C/O FEVER. PATIENT RECEIVED TYLENOL CATALOGUE MAKER. PATIENT IS ALERT AND ORIENTED x3. PATIENT IS BREATHING EVENLY AND UNLABORED ON ROOM AIR. CONNECTED TO THE MONITOR.
--- NOTE | 2021-05-22 03:02 | NUR ---
COVID SWAB COLLECTED AND SENT TO LAB
--- NOTE | 2021-05-22 03:02 | NUR ---
IV LINE ESTABLISHED AT LAC 20G, BLOOD DRAWN, AND COVID SWAB COLLECTED,AND SENT TO LAB
[2021-05-22 03:14] LABS: BASOPHILS # (AUTO) 0.1 K/uL (0.0-0.2); BASOPHILS % (AUTO) 0.9 % (0.0-2.0); EOSINOPHILS % (AUTO) 1.7 % (0.0-6.0); HEMATOCRIT 39 % (33-45); HEMOGLOBIN 13.1 g/dL (11.5-14.8); LYMPHOCYTES # (AUTO) 3.2 K/uL (0.8-4.8); LYMPHOCYTES % (AUTO) 32.6 % (20.0-44.0); MEAN CORPUSCULAR HGB CONC 34 g/dl (31.0-36.0); MEAN CORPUSCULAR VOLUME 96 fL (82-100); MONOCYTES # (AUTO) 0.8 K/uL (0.1-1.30); MONOCYTES % (AUTO) 8.1 % (2.0-12.0); NEUTROPHILS # (AUTO) 5.5 K/uL (1.8-8.9); NEUTROPHILS % (AUTO) 56.7 % (43.0-81.0); PLATELET COUNT (AUTO) 235 K/uL (150-450); RED BLOOD CELL COUNT(AUTO) 4.01 MIL/uL (4.0-5.2); WHITE BLOOD COUNT (AUTO) 9.7 K/uL (4.3-11.0)
[2021-05-22 03:23] LABS: CALCIUM, SERUM 8.5 mg/dL (8.5-10.1); CARBON DIOXIDE 29 mmol/L (21-32); CHLORIDE 105 mmol/L (98-107); CREATININE 0.9 mg/dL (0.6-1.3); GLUCOSE 94 mg/dL (74-106); POTASSIUM 3.6 mmol/L (3.5-5.1); SODIUM SERUM 138 mmol/L (136-145); UREA NITROGEN, BLOOD 15 mg/dL (7-18)
[2021-05-22 03:26] LABS: BILIRUBIN,URINE Negative (NEGATIVE); COLOR,URINE YELLOW (YELLOW); LEUKOCYTE ESTERASE ,URINE Negative (NEGATIVE); NITRITE, URINE Negative (NEGATIVE); PROTEIN,URINE Negative (NEGATIVE); UGLUCOSE Negative (NEGATIVE); UROBILINOGEN,URINE 0.2 EU/dL (0.2)
[2021-05-22 03:36] LABS: ALANINE AMINOTRANSFERASE 61 U/L (12-78); ALKALINE PHOSPHATASE 712 U/L (46-116); ASPARTATE AMINOTRANSFERASE 120 U/L (15-37); BILIRUBIN,DIRECT 1.7 mg/dL (0.0-0.2); BILIRUBIN,TOTAL 2.3 mg/dL (0.2-1.0); TOTAL PROTEIN, SERUM 7.1 g/dL (6.4-8.2)
[2021-05-22 03:39] LABS: BACTERIA,URINE None seen /HPF (None Seen); SQUAMOUS EPITHELIAL CELL,UR Rare /HPF (None Seen); WBC,URINE 0-2 /HPF (0-3)
--- NOTE | 2021-05-22 05:00 | NUR ---
[facility] CALLED FOR TRANSPORT. NO TRANSPORT AVAILABLE. [facility] CALLED FOR TRANSPORT. NO AVAILABLE.
--- NOTE | 2021-05-22 06:55 | NUR ---
REPORT GIVEN TO [facility] STAFF FOR RAFAELA.
--- NOTE | 2021-05-22 07:21 | NUR ---
[facility] CALLED ETA [phone]
[2021-05-22 08:31] VITALS: BP 120/86
--- NOTE | 2021-05-22 08:33 | NUR ---
Patient discharged to [facility] in stable condition. Written and verbal after care instructions given. Patient verbalizes understanding of instruction.
== END 2021-05-22 08:38 ==
LOC: ER 02:33
DX: R50.9 Fever, unspecified (principal); G30.9 Alzheimer's disease, unspecified; F02.80 Dementia in other diseases classified elsewhere, unspecified severity, without behavioral disturbance, psychotic disturbance, mood disturbance, and anxiety; Z86.718 Personal history of other venous thrombosis and embolism; Z96.653 Presence of artificial knee joint, bilateral; F41.0 Panic disorder [episodic paroxysmal anxiety]; I10 Essential (primary) hypertension; R00.1 Bradycardia, unspecified; R94.31 Abnormal electrocardiogram [ECG] [EKG]
CPT/HCPCS: 36415; 71045-TC; 80048-TC; 80076-TC; 81001; 83605-TC; 83880; 84484-TC; 85025-TC; 85730-TC; 87040-TC; 87086-TC; C9803

== ENCOUNTER 2021-06-07 20:41 | Inpatient (IN) | payer MEDICARE, OTHER ==
[~2021-06-07] VITALS: Ht 152.4 cm; Wt 73.5 kg
--- NOTE | 2021-06-07 21:33 | NUR ---
RAMA FROM [facility] TO ER BED 7. AAOX2. NOT IN RESP DISTRESS BUT TACHYPNEIC. ON 02 @ 2LPM VIA NC BASELINE. BROUGHT IN FOR INCREASED COUGH, CONGESTION AND POOR PO INTAKE. PT WAS STARTED ON ATB AUGMENTIN ON 06/01/2021 FOR COUGH AND CONGESTION. PT IS NOTED WITH PRODUCTIVE COUGH, CRACKLE AND RONCHI. ORAL TEMP 100.1. WAS AT THE BEDSIDE FOR EVAL. ORDERS RECEIVED, NOTED AND CARRIED OUT.
[2021-06-07 22:02] LABS: BASOPHILS # (AUTO) 0.1 K/uL (0.0-0.2); BASOPHILS % (AUTO) 0.5 % (0.0-2.0); EOSINOPHILS % (AUTO) 0.3 % (0.0-6.0); HEMATOCRIT 39 % (33-45); HEMOGLOBIN 12.9 g/dL (11.5-14.8); LYMPHOCYTES # (AUTO) 3.7 K/uL (0.8-4.8); LYMPHOCYTES % (AUTO) 26.5 % (20.0-44.0); MEAN CORPUSCULAR HGB CONC 33 g/dl (31.0-36.0); MEAN CORPUSCULAR VOLUME 97 fL (82-100); MONOCYTES # (AUTO) 1.3 K/uL (0.1-1.30); MONOCYTES % (AUTO) 9.2 % (2.0-12.0); NEUTROPHILS # (AUTO) 8.7 K/uL (1.8-8.9); NEUTROPHILS % (AUTO) 63.5 % (43.0-81.0); PLATELET COUNT (AUTO) 236 K/uL (150-450); RED BLOOD CELL COUNT(AUTO) 4.02 MIL/uL (4.0-5.2); WHITE BLOOD COUNT (AUTO) 13.8 K/uL (4.3-11.0)
[2021-06-07] MEDS ORDERED: PIPERACILLIN /TAZOBACTAM 3.375 G in IV D5W 50 ML IV ONE (22:30)
[2021-06-07] MEDS ORDERED: VANCOMYCIN 1 GM in IV D5W 250 ML IV ONE (22:30)
[2021-06-07] MEDS ORDERED: IV NS 0.9% 1,000 ML BAG IV ONE (22:30)
[2021-06-07 22:31] LABS: ALANINE AMINOTRANSFERASE 43 U/L (12-78); ALBUMIN 1.9 g/dL (3.4-5.0); ALKALINE PHOSPHATASE 812 U/L (46-116); ASPARTATE AMINOTRANSFERASE 108 U/L (15-37); BILIRUBIN,DIRECT 2.2 mg/dL (0.0-0.2); CALCIUM, SERUM 8.6 mg/dL (8.5-10.1); CARBON DIOXIDE 28 mmol/L (21-32); CHLORIDE 101 mmol/L (98-107); CREATININE 1.1 mg/dL (0.6-1.3); GLUCOSE 134 mg/dL (74-106); POTASSIUM 3.6 mmol/L (3.5-5.1); SODIUM SERUM 138 mmol/L (136-145); TOTAL PROTEIN, SERUM 7.4 g/dL (6.4-8.2); UREA NITROGEN, BLOOD 24 mg/dL (7-18)
--- NOTE | 2021-06-07 23:31 | NUR ---
urine collected via in and out cath with strict sterile technique. noted dark straw color with sediment.
--- NOTE | 2021-06-07 23:46 | NUR ---
[place] SWABBED, SENT TO LAB.
[2021-06-08 02:01] LABS: BILIRUBIN,URINE LARGE (NEGATIVE); COLOR,URINE AMBER (YELLOW); LEUKOCYTE ESTERASE ,URINE TRACE (NEGATIVE); NITRITE, URINE POSITIVE (NEGATIVE); PH,URINE 6.5 (5.0-8.0); PROTEIN,URINE 30 mg/dl (NEGATIVE); UGLUCOSE 100 MG/DL mg/dL (NEGATIVE)
[2021-06-08 02:06] LABS: BACTERIA,URINE Many /HPF (None Seen); CALCIUM OXALATE CRYSTALS,UR Many /HPF (None Seen); RBC,URINE 21-50 /HPF (0-2); SQUAMOUS EPITHELIAL CELL,UR Moderate /HPF (None Seen); URINE AMORPHOUS URATE Many /HPF (None Seen)
--- NOTE | 2021-06-08 07:30 | NUR ---
PATIENT A/OX2, VERBALLY RESPONSIVE, GREEK SPEAKING, NO DISTRESS NOTED.
[2021-06-08] MEDS ORDERED: VANCOMYCIN HCL 1.25 GM in IV D5W 260 ML IV ONE (08:00)
[2021-06-08] MEDS ORDERED: ACETAMINOPHEN 325 MG TABLET PO PRN (08:00)
[2021-06-08] MEDS ORDERED: ONDANSETRON HCL/PF 4 MG/2 ML VIAL IVP PRN (08:00)
[2021-06-08] MEDS ORDERED: Z GUARD REMEDY 2 OZ OINT TP PRN (08:00)
[2021-06-08] MEDS ORDERED: BISA10SU11 RC (08:40)
[2021-06-08] MEDS ORDERED: NA P133E RC (08:40)
[2021-06-08] MEDS ORDERED: ESCI5TAB PO (08:40)
[2021-06-08] MEDS ORDERED: LIDO30AD10 TP (08:40)
[2021-06-08] MEDS ORDERED: IPRA4AER IH (08:40)
[2021-06-08] MEDS ORDERED: AMIN30LI27 PO (08:40)
[2021-06-08] MEDS ORDERED: GEMTESA PO (08:40)
[2021-06-08] MEDS ORDERED: ACET-868 PO (08:40)
[2021-06-08] MEDS ORDERED: METH57CR22 TP (08:40)
[2021-06-08] MEDS ORDERED: ACET-907 PO (08:40)
[2021-06-08] MEDS ORDERED: MULT-447 PO (08:40)
[2021-06-08] MEDS ORDERED: MAGN400O6 PO (08:40)
[2021-06-08] MEDS ORDERED: ASCO-352 PO (08:40)
[2021-06-08] MEDS ORDERED: GABA-532 PO (08:40)
[2021-06-08] MEDS ORDERED: ENOXAPARIN SODIUM 40 MG/0.4 ML DISP.SYRIN SQ ONE (09:08)
[2021-06-08] MEDS: ENOXAPARIN SODIUM 40 MG/0.4 ML DISP.SYRIN SQ SCH (09:11)
[2021-06-08] MEDS: IV NS 0.9% 1,000 ML IV PRN ×2 (10:48→14:15)
[2021-06-08] MEDS: VANCOMYCIN HCL 0.75 GM in IV D5W 250 ML IV SCH ×2 (10:59→22:49)
[2021-06-08] MEDS: FLUTICASONE/VILANTEROL 1 EACH BLST.W.DEV IH SCH (10:59)
--- NOTE | 2021-06-08 11:10 | NUR ---
PERICARE PROVIDED, DIAPER CHANGED, TURNED AND REPOSITIONED. PATIENT IN STABLE CONDITION.
--- NOTE | 2021-06-08 12:52 | NUR ---
ROOM 105
--- NOTE | 2021-06-08 12:55 | NUR ---
REPORT GIVEN TO NURSE RODRÍGUEZ
[2021-06-08] MEDS ORDERED: PIPERACILLIN /TAZOBACTAM 3.375 G in IV D5W 50 ML IV SCH (13:00)
--- NOTE | 2021-06-08 13:33 | NUR ---
ROOM CORRECTION: BED 116
--- NOTE | 2021-06-08 13:55 | NUR ---
PATIENT TRANSFERRED TO ROOM 106 VIA ACLS PROTOCOL, IN NO DISTRESS NOTED. PATIENT IN STABLE CONDITION.
[2021-06-08] MEDS: PIPERACILLIN /TAZOBACTAM 3.375 G in IV D5W 50 ML IV SCH ×2 (14:15→17:20)
--- NOTE | 2021-06-08 14:35 | NUR ---
SS NOTE: SS consult received for "score of 10". SW called the charge nurse to determine reason for consult. Charge nurse stated she will find out and call SW back.
--- NOTE | 2021-06-08 14:50 | NUR ---
RETAIL CASHIERTEST PILOT NOTES RECEIVED PATIENT IN BED, AWAKE, A/O X2. PATIENT ON ROOM AIR, ABLE TO MAKE NEEDS KNOWN. VS WNL. WILL CONTINUE TO MONITOR PATIENT.
[2021-06-08] MEDS: GUAIFENESIN LA 600 MG TABLET.SA PO SCH ×2 (15:52→22:37)
--- NOTE | 2021-06-08 18:45 | NUR ---
VESSEL TRAFFIC OFFICER CLOSING NOTES PATIENT IN BED AT THIS TIME, A/O X2, ON ROOM AIR. BREATHING EVEN AND UNLABORED; PATIENT SOUNDS CONGESTED. TELE MONITOR WITH A CURRENT READING OF SR 84 BPM. IV ACCESS ON LFA G # 20 INFUSING NS @ 75 MLS/HR. NO COMPLAINS OF PAIN. ALL NEEDS ATTENDED. SAFETY PRECAUTIONS IN PLACE; BED IN LOW POSITION AND LOCKED, RAILS UP X2, CALL LIGHT WITHIN REACH. WILL ENDORSE TO SPECIAL AGENT GROUP INSURANCE NURSE.
[2021-06-08 20:00] VITALS: BP 117/63
--- NOTE | 2021-06-08 20:00 | NUR ---
SERVICE STATION EQUIPMENT MECHANIC NOTE PT IN BED AWAKE. A/O X 3, NO SOB NO DISTRESS OR DISCOMFORT NOTED. DENIES PAIN. IVF NS 75 ML/HR, INFUSING AT LFA #20 G, NO S/S OF INFILTRATION NOTED. ON TELE MONITOR SR HR 85. SIDE RAILS UP X 3 AND CALL LIGHT WITHIN REACH. CONTINUE TO MONITOR HER.
[2021-06-08] MEDS: DONEPEZIL 5 MG TABLET PO SCH (22:37)
[2021-06-08] MEDS ORDERED: VANCOMYCIN 1 GM VIAL ONE (22:47)
[2021-06-09] MEDS: PIPERACILLIN /TAZOBACTAM 3.375 G in IV D5W 50 ML IV SCH ×4 (00:31→18:23)
[2021-06-09] MEDS: IV NS 0.9% 1,000 ML IV PRN ×2 (04:11→21:51)
[2021-06-09 06:54] LABS: BASOPHILS % (AUTO) 0.3 % (0.0-2.0); EOSINOPHILS % (AUTO) 1.6 % (0.0-6.0); HEMATOCRIT 37 % (33-45); HEMOGLOBIN 12.4 g/dL (11.5-14.8); LYMPHOCYTES # (AUTO) 2.4 K/uL (0.8-4.8); LYMPHOCYTES % (AUTO) 25.8 % (20.0-44.0); MEAN CORPUSCULAR HGB CONC 34 g/dl (31.0-36.0); MEAN CORPUSCULAR VOLUME 96 fL (82-100); MONOCYTES # (AUTO) 0.8 K/uL (0.1-1.30); NEUTROPHILS # (AUTO) 6.1 K/uL (1.8-8.9); NEUTROPHILS % (AUTO) 64.3 % (43.0-81.0); PLATELET COUNT (AUTO) 225 K/uL (150-450); RED BLOOD CELL COUNT(AUTO) 3.79 MIL/uL (4.0-5.2); WHITE BLOOD COUNT (AUTO) 9.5 K/uL (4.3-11.0)
--- NOTE | 2021-06-09 07:10 | NUR ---
PROJECT FINANCE ANALYST OPENING NOTES RECEIVED PATIENT ON BED AT THIS TIME, A/O X2, ON ROOM AIR. BREATHING EVEN AND UNLABORED WITH NO SIGNS OF RESPIRATORY DISTRESS; PATIENT SOUNDS CONGESTED WITH CRACKLES ON ALL LUNG CERNA. ABLE TO MAKE NEEDS KNOWN. WITH IV ACCESS ON LFA G # 20 INFUSING NS @ 75 MLS/HR. NO COMPLAINS OF PAIN. ALL NEEDS ATTENDED. SAFETY PRECAUTIONS IN PLACE; BED IN LOW POSITION AND LOCKED, RAILS UP X2, CALL LIGHT AND BEDSIDE TABLE WITHIN REACH AT ALL TIMES. WILL ENDORSE TO ACID REMOVER NURSE.
--- NOTE | 2021-06-09 07:13 | NUR ---
SAXOPHONE TEACHER NOTE PT IN BED AWAKE. NO DISTRESS OR DISCOMFORT NOTED. DENIES PAIN. NO CHANGE IN CONDITION. NS INFUSING AT 75 ML/HR, NO S/S OF INFILTRATION NOTED. ALL NEEDS ATTENDED. SIDE RAILS UP X 2 AND CALL LIGHT WITHIN REACH. ENDORSE TO DAY SHIFT NURSE FOR CONTINUE TO CARE.
[2021-06-09 07:14] LABS: CALCIUM, SERUM 8.2 mg/dL (8.5-10.1); CREATININE 0.7 mg/dL (0.6-1.3); MAGNESIUM 1.9 mg/dL (1.8-2.4); PHOSPHORUS 2.2 mg/dL (2.5-4.9)
[2021-06-09 07:24] LABS: POTASSIUM 2.7 mmol/L (3.5-5.1)
--- NOTE | 2021-06-09 07:30 | NUR ---
ELECTRONIC SCIENCE TEACHER NOTE TRAINING AND DOCUMENTATION SPECIALIST MAY CALLED AND INFORMED K LEVEL 2.7, PAGED MD WAITING FOR MD TO CALL BACK, INFORMED DAY SHIFT NURSE TO FOLLOW UP.
--- NOTE | 2021-06-09 07:35 | NUR ---
TAR CHASER NOTE PATIENT WITH POTASSIUM AT 2.7 WITH NO SIGNS AND SYMPTOMS OF HYPOKALEMIA NOTED AT THIS TIME. DR. WEBER UPDATED OF LATEST RESULT WITH NO NEW ORDER AT THIS TIME.
[2021-06-09] MEDS: GUAIFENESIN LA 600 MG TABLET.SA PO SCH ×2 (08:59→21:44)
[2021-06-09] MEDS: ENOXAPARIN SODIUM 40 MG/0.4 ML DISP.SYRIN SQ SCH (09:00)
[2021-06-09] MEDS: FLUTICASONE/VILANTEROL 1 EACH BLST.W.DEV IH SCH (09:12)
[2021-06-09] MEDS ORDERED: POTASSIUM CHLORIDE 20 MEQ TAB.PRT.SR PO ONE (12:00)
[2021-06-09] MEDS: VANCOMYCIN HCL 0.75 GM in IV D5W 250 ML IV SCH ×2 (12:18→22:20)
[2021-06-09] MEDS ORDERED: K PHOS NEUTRAL 250 MG TABLET PO ONE (13:00)
--- NOTE | 2021-06-09 19:00 | NUR ---
JUDICIAL REPORTER CLOSING NOTES RECEIVED PATIENT ON BED AT THIS TIME, A/O X2, ON ROOM AIR. BREATHING EVEN AND UNLABORED WITH NO SIGNS OF RESPIRATORY DISTRESS; PATIENT SOUNDS CONGESTED WITH CRACKLES ON ALL LUNG CERNA. ABLE TO MAKE NEEDS KNOWN. WITH IV ACCESS ON LFA G # 20 INFUSING NS @ 75 MLS/HR. NO COMPLAINS OF PAIN. ALL NEEDS ATTENDED. SAFETY PRECAUTIONS IN PLACE; BED IN LOW POSITION AND LOCKED, RAILS UP X2, CALL LIGHT AND BEDSIDE TABLE WITHIN REACH AT ALL TIMES. WILL ENDORSE TO CHIEF OF PRODUCTION NURSE FOR CONTINUITYOF CARE.
--- NOTE | 2021-06-09 19:48 | NUR ---
RN OPENING NOTE RECEIVED PATIENT IN BED A/O X2 WELSH SPEAKER. ON ROOM AIR. BREATHING EVEN AND UNLABORED WITH NO SIGNS OF RESPIRATORY DISTRESS; PATIENT CONGESTED WITH COUGH NOTED AND CRACKLES ON BILATERAL UPPER LOBES. ABLE TO MAKE NEEDS KNOWN. IV ACCESS ON LFA G # 20 INFUSING NS @ 75 MLS/HR. DENIES ANY PAIN. SAFETY PRECAUTIONS IN PLACE; BED IN LOW POSITION AND LOCKED, RAILS UP X2, BED ALARM ON. CALL LIGHT AND BEDSIDE TABLE WITHIN REACH. NO ACUTE DISTRESS NOTED AT THIS TIME.
[2021-06-09 20:00] VITALS: BP 138/74
[2021-06-09] MEDS: DONEPEZIL 5 MG TABLET PO SCH (21:44)
[2021-06-10] VITALS: BP 129/63
[2021-06-10] MEDS: PIPERACILLIN /TAZOBACTAM 3.375 G in IV D5W 50 ML IV SCH ×4 (00:05→17:14)
[2021-06-10 04:00] VITALS: BP 114/65
--- NOTE | 2021-06-10 06:38 | NUR ---
RN CLOSING NOTE PATIENT IN BED A/O X2 BURKINAN SPEAKER. ON ROOM AIR. BREATHING EVEN AND UNLABORED WITH NO SIGNS OF RESPIRATORY DISTRESS; PATIENT CONGESTED WITH COUGH NOTED AND CRACKLES ON BILATERAL UPPER LOBES. ABLE TO MAKE NEEDS KNOWN. IV ACCESS ON (L) FA G # 20 INFUSING NS @ 75 MLS/HR. DENIES ANY PAIN. ALL ORDERS FOLLOWED AND COMPLETED, PT. KEPT CLEAN AND DRY. SAFETY PRECAUTIONS IN PLACE; BED LOCKED IN LOWEST POSITION, SIDE RAILS UP X2, BED ALARM ON. CALL LIGHT AND BEDSIDE TABLE WITHIN REACH. NO ACUTE DISTRESS NOTED AT THIS TIME. WILL ENDORSE CONTINUITY OF CARE TO MORNING SHIFT RN
[2021-06-10 07:24] LABS: BASOPHILS % (AUTO) 0.6 % (0.0-2.0); EOSINOPHILS % (AUTO) 2.6 % (0.0-6.0); HEMATOCRIT 37 % (33-45); HEMOGLOBIN 12.2 g/dL (11.5-14.8); LYMPHOCYTES # (AUTO) 2.7 K/uL (0.8-4.8); LYMPHOCYTES % (AUTO) 35.3 % (20.0-44.0); MEAN CORPUSCULAR HGB CONC 33 g/dl (31.0-36.0); MEAN CORPUSCULAR VOLUME 97 fL (82-100); MONOCYTES # (AUTO) 0.7 K/uL (0.1-1.30); MONOCYTES % (AUTO) 8.5 % (2.0-12.0); NEUTROPHILS # (AUTO) 4.1 K/uL (1.8-8.9); PLATELET COUNT (AUTO) 227 K/uL (150-450); RED BLOOD CELL COUNT(AUTO) 3.81 MIL/uL (4.0-5.2); WHITE BLOOD COUNT (AUTO) 7.8 K/uL (4.3-11.0)
--- NOTE | 2021-06-10 07:34 | NUR ---
RN OPENING NOTE PT AWAKE IN BED RESTING. ON RA WITH NO SOB OR RESPIRATORY DISTRESS PRESENT. A/O X 2 AND SERBIAN SPEAKING. ON HOSPITAL TECHNICIAN. EDEMA PRESENT ON BLE. ON BEDREST WITH DIAPER PRESENT. SKIN IS INTACT. IV PRESENT ON L FA 20G AND FLUSHES WELL. LABS AND ORDERS REVIEWED. SAFETY MEASURES IN PLACE. SIDE RAILS RAISED. BED LOWERED. CALL LIGHT WITHIN REACH. WILL CONTINUE TO MONITOR.
[2021-06-10 07:59] LABS: CALCIUM, SERUM 8.3 mg/dL (8.5-10.1); CREATININE 0.8 mg/dL (0.6-1.3); PHOSPHORUS 2.5 mg/dL (2.5-4.9)
[2021-06-10 08:00] VITALS: BP 107/45
[2021-06-10] MEDS: ENOXAPARIN SODIUM 40 MG/0.4 ML DISP.SYRIN SQ SCH (08:00)
[2021-06-10 08:08] LABS: POTASSIUM 2.8 mmol/L (3.5-5.1)
[2021-06-10] MEDS: GUAIFENESIN LA 600 MG TABLET.SA PO SCH ×2 (08:38→21:12)
[2021-06-10] MEDS: FLUTICASONE/VILANTEROL 1 EACH BLST.W.DEV IH SCH (08:41)
[2021-06-10] MEDS: POTASSIUM CHLORIDE 20 MEQ POWDER PACKET PO SCH ×3 (10:17→12:30)
[2021-06-10] MEDS: VANCOMYCIN HCL 0.75 GM in IV D5W 250 ML IV SCH ×2 (10:18→23:00)
[2021-06-10 12:00] VITALS: BP 99/41
[2021-06-10] MEDS ORDERED: IV NS 0.9% 500 ML IV ONE (14:00)
[2021-06-10] MEDS: IV NS 0.9% 1,000 ML IV PRN (14:37)
[2021-06-10 16:00] VITALS: BP 88/34
--- NOTE | 2021-06-10 19:30 | NUR ---
RN CLOSING NOTE PT AWAKE IN BED RESTING. ON RA WITH NO SOB OR RESPIRATORY DISTRESS PRESENT. A/O X 2 AND [place] SPEAKING. NO COMPLAINT OF PAIN OR NAUSEA PRESENT. NO RAILROAD CAR CLEANER PRESENT. EDEMA PRESENT ON BLE. ON BEDREST WITH DIAPER PRESENT. SKIN IS INTACT. IV PRESENT ON L FA 20G AND FLUSHES WELL. ROUTINE MEDS GIVEN. LABS AND ORDERS REVIEWED. SAFETY MEASURES IN PLACE. SIDE RAILS RAISED. BED LOWERED. CALL LIGHT WITHIN REACH. REPORT GIVEN TO NIGHT NURSE FOR RAFAELA.
--- NOTE | 2021-06-10 19:46 | NUR ---
RN OPENING NOTE RECEIVED PATIENT IN BED A/O X2 MAORI SPEAKER. ON ROOM AIR. BREATHING EVEN AND UNLABORED WITH NO SIGNS OF RESPIRATORY DISTRESS; PATIENT CONGESTED WITH COUGH NOTED AND CRACKLES ON BILATERAL UPPER LOBES AND LEFT LOWER LOBE. ABLE TO MAKE NEEDS KNOWN. IV ACCESS ON LFA G # 20 INFUSING NS @ 75 MLS/HR. DENIES ANY PAIN. SAFETY PRECAUTIONS IN PLACE; BED IN LOW POSITION AND LOCKED, RAILS UP X2, BED ALARM ON. CALL LIGHT AND BEDSIDE TABLE WITHIN REACH. NO ACUTE DISTRESS NOTED AT THIS TIME.
[2021-06-10 20:00] VITALS: BP 124/58
[2021-06-10] MEDS: DONEPEZIL 5 MG TABLET PO SCH (21:12)
--- NOTE | 2021-06-10 23:00 | NUR ---
RN NOTE VANCO TROUGH LEVEL OF 24 AT 2200 LAB DRAW. SPOKE WITH DAVI AT [facility] WHO ADVISED TO HOLD VANCO DOSE DUE AT 2300.
[2021-06-11] VITALS: BP 152/68
--- NOTE | 2021-06-11 | NUR ---
DIRECTOR OF BUSINESS OPERATIONS NOTES RECEIVED TRANSFER FROM [facility] BY VIA ACLS PROTOCOL,SPEAK TELUGU,ALERT,ORIENTED X1,PLACE ON TELE MONITOR.APPEARS CONGESTED,AUDIBLE CRACKERS NOTED,O2 SAT 96% ON ROOM AIR.SA;INE LOCK LEFT ARM INTACT AND PATENT.NO SKIN ISSUES. STARTED ON DUE ABX ORDERED.HOB ELEVATED,CALL LIGHT IN REACH,NEED ANTICIPATED.
--- NOTE | 2021-06-11 00:14 | NUR ---
RN NOTE PT. TRANSFERRED TO 3 MED SURG ROOM 324-1. REPORT GIVEN TO DAYSI RN. ALL PT BELONGINGS ACCOUNTED FOR, PT CHART GIVEN TO NURSE ALONG WITH ALL DESIGNATED MEDICATIONS. PT. TRANSFERRED ON HOSPITAL BED VIA ACLS PROTOCOL.
[2021-06-11] MEDS: PIPERACILLIN /TAZOBACTAM 3.375 G in IV D5W 50 ML IV SCH ×2 (00:20→05:50)
[2021-06-11 04:00] VITALS: BP 116/53
[2021-06-11 04:42] VITALS: BP 116/53
--- NOTE | 2021-06-11 06:22 | NUR ---
LUBRICATION SUPERVISOR NOTES FAIRLY RESTED AT NIGHT,DUE IV ABX ADMINISTERED,IN NO ACUTE DISTRESS.WILL ENDORSE TO DAY NURSE FOR RAFAELA
[2021-06-11 06:55] LABS: CALCIUM, SERUM 8.1 mg/dL (8.5-10.1); CREATININE 0.7 mg/dL (0.6-1.3)
[2021-06-11 07:05] LABS: POTASSIUM 2.8 mmol/L (3.5-5.1)
--- NOTE | 2021-06-11 07:08 | NUR ---
ELECTRONICS INSTRUCTOR NOTES REPORTED BY LAB NAME GIOVANNA,POTASSIUM LEVEL THIS MORNING 2.8.WILL ENDORSE TO DAY NURSE FOR RAFAELA.
--- NOTE | 2021-06-11 07:58 | NUR ---
TELE/RN OPENING NOTES RECEIVED PATIENT IN BED, ALERT AND ORIENTED X1-2. TAJIK SPEAKING. ON ROOM AIR. NO DISTRESS NOTED. IV ACCESS ON LEFT FA #20G IS INTACT AND PATENT ON SALINE LOCK. SAFETY PRECAUTIONS IN PLACED: BED LOCKED ON LOWEST POSITION, SIDE RAILS UPX2, CALL LIGHT WITHIN REACH. WILL CONTINUE TO MONITOR PATIENT.
[2021-06-11] MEDS: POTASSIUM CHLORIDE 20 MEQ TAB.PRT.SR PO SCH ×3 (08:57→10:50)
[2021-06-11] MEDS: GUAIFENESIN LA 600 MG TABLET.SA PO SCH (08:58)
[2021-06-11] MEDS: ENOXAPARIN SODIUM 40 MG/0.4 ML DISP.SYRIN SQ SCH (09:00)
[2021-06-11] MEDS: FLUTICASONE/VILANTEROL 1 EACH BLST.W.DEV IH SCH (09:01)
[2021-06-11] MEDS ORDERED: MERO1PIG IV (09:38)
[2021-06-11] MEDS ORDERED: MEROPENEM 500 MG in IV NS 0.9% 50 ML IV SCH (10:00)
[2021-06-11] MEDS ORDERED: VANCOMYCIN HCL 0.75 GM in IV D5W 250 ML IV SCH (11:00)
--- NOTE | 2021-06-11 14:16 | NUR ---
TELE/INVENTORY COORDINATOR NOTES PATIENT IS ALERT AND ORIENTEDX2, ABLE TO MAKE NEEDS KNOWN. STABLE ON ROOM AIR. PATIENT IS MEDICALLY STABLE AND MD HAS DISCHARGE ORDER BACK TO [facility]. CALLED [facility] G[facility] AND WAS ABLE TO GIVE ALL ENDORSEMENTS AND DISCHARGE INSTRUCTIONS TO IZAIAH KOO OVER THE PHONE. IV ACCESS ON LEFT FA #20G REMAINED DUE TO PATIENT CONTINUING MERREM IV ATB FOR ANOTHER 3 DAYS. IZAIAH KOO AT SNF AWARE. ALL BELONGINGS ACCOUNTED FOR.
== END 2021-06-11 13:20 | DRG 871 ==
LOC: ER 20:44 → TRANSITION 06-08 04:02 → TELE1 06-08 13:20 → TELE 06-10 23:48
PROVIDERS: ADMIT Nurse Practitioner Acute Care; ATTEND Nurse Practitioner Acute Care
DX: A41.9 Sepsis, unspecified organism (principal); E43 Unspecified severe protein-calorie malnutrition; G93.41 Metabolic encephalopathy; J15.9 Unspecified bacterial pneumonia; E87.1 Hypo-osmolality and hyponatremia; N17.9 Acute kidney failure, unspecified; N39.0 Urinary tract infection, site not specified; Z16.12 Extended spectrum beta lactamase (ESBL) resistance; G30.9 Alzheimer's disease, unspecified; E11.9 Type 2 diabetes mellitus without complications; Z20.822 Contact with and (suspected) exposure to COVID-19; I10 Essential (primary) hypertension; E86.0 Dehydration; Z86.718 Personal history of other venous thrombosis and embolism; F41.0 Panic disorder [episodic paroxysmal anxiety]; Z96.653 Presence of artificial knee joint, bilateral; Z96.649 Presence of unspecified artificial hip joint; F02.80 Dementia in other diseases classified elsewhere, unspecified severity, without behavioral disturbance, psychotic disturbance, mood disturbance, and anxiety; Z79.899 Other long term (current) drug therapy; J06.9 Acute upper respiratory infection, unspecified; B96.89 Other specified bacterial agents as the cause of diseases classified elsewhere; E87.6 Hypokalemia; I70.0 Atherosclerosis of aorta; Z79.51 Long term (current) use of inhaled steroids
CPT/HCPCS: 36415; 71045-TC; 80048-TC; 80061-TC; 80076-TC; 80202-TC; 81001; 83605-TC; 83735-TC; 84100-TC; 84484-TC; 85025-TC; 85730-TC; 87040-TC; 87081-TC; 87086-TC; 87186-TC; 97112-TC; 97530-TC; C9803; G0378; J1650; J2185; J2405; J2543; J3370; J7030; J7040; J7050; J7060; U0003

== ENCOUNTER 2021-08-18 19:26 | Inpatient (IN) | payer MEDICARE, OTHER ==
[~2021-08-18] VITALS: Ht 157.5 cm; Wt 68.9 kg
[~2021-08-18 19:26] MED LIST changes: +ACET-868 PO; +ACET-907 PO; +AMIN30LI27 PO; -AMOX-427 PO; +ASCO-352 PO; +BISA10SU11 RC; +ESCI5TAB PO; +GABA-532 PO; +GEMTESA PO; +IPRA4AER IH; +MAGN400O6 PO; +MERO1PIG IV; +METH57CR22 TP; +MULT-447 PO; +NA P133E RC
--- NOTE | 2021-08-18 19:34 | NUR ---
CALLED FOR TRIAGE, NO ANSWER.
--- NOTE | 2021-08-18 19:52 | NUR ---
CALLED FOR TRIAGE, NO ANSWER.
--- NOTE | 2021-08-18 20:15 | NUR ---
CALLED TO TRIAGE, NO RESPONSE
--- NOTE | 2021-08-18 20:40 | NUR ---
PT BIBEMS FROM [facility] FOR MORE LETHARGIC THAN USUAL. PT ALERT AND ORIENTED X3. PT BROUGHT IN ON A STRETCHER. PRESENTS WITH NON LABORED BREATHING.
[2021-08-18 21:34] LABS: BASOPHILS # (AUTO) 0.1 K/uL (0.0-0.2); BASOPHILS % (AUTO) 0.6 % (0.0-2.0); EOSINOPHILS % (AUTO) 1.3 % (0.0-6.0); HEMATOCRIT 39 % (33-45); HEMOGLOBIN 12.5 g/dL (11.5-14.8); LYMPHOCYTES # (AUTO) 3.2 K/uL (0.8-4.8); LYMPHOCYTES % (AUTO) 21.8 % (20.0-44.0); MEAN CORPUSCULAR HGB CONC 32 g/dl (31.0-36.0); MEAN CORPUSCULAR VOLUME 96 fL (82-100); MONOCYTES # (AUTO) 1.2 K/uL (0.1-1.30); MONOCYTES % (AUTO) 8.2 % (2.0-12.0); NEUTROPHILS # (AUTO) 9.9 K/uL (1.8-8.9); NEUTROPHILS % (AUTO) 68.1 % (43.0-81.0); PLATELET COUNT (AUTO) 247 K/uL (150-450); RED BLOOD CELL COUNT(AUTO) 4.01 MIL/uL (4.0-5.2); WHITE BLOOD COUNT (AUTO) 14.6 K/uL (4.3-11.0)
[2021-08-18 21:58] LABS: CALCIUM, SERUM 8.1 mg/dL (8.5-10.1); CREATININE 0.8 mg/dL (0.6-1.3); POTASSIUM 3.4 mmol/L (3.5-5.1)
[2021-08-18 22:02] LABS: ALBUMIN 1.8 g/dL (3.4-5.0); BILIRUBIN,TOTAL 0.6 mg/dL (0.2-1.0); TOTAL PROTEIN, SERUM 7.5 g/dL (6.4-8.2)
--- NOTE | 2021-08-18 22:28 | NUR ---
BLOOD TAKEN AND SENT TO LAB
[2021-08-18] MEDS ORDERED: IV NS 0.9% 1,000 ML BAG IV ONE (22:30)
--- NOTE | 2021-08-18 22:47 | NUR ---
taken to radiology
--- NOTE | 2021-08-18 23:18 | NUR ---
SARITA AL: [phone]
--- NOTE | 2021-08-18 23:21 | NUR ---
urine sent to lab
[2021-08-18 23:26] LABS: BILIRUBIN,URINE SMALL (NEGATIVE); COLOR,URINE DARK YELLOW (YELLOW); LEUKOCYTE ESTERASE ,URINE Negative (NEGATIVE); NITRITE, URINE Positive (NEGATIVE); PH,URINE 6.5 (5.0-8.0); PROTEIN,URINE >=300 mg/dl (NEGATIVE); UGLUCOSE Negative (NEGATIVE)
[2021-08-18 23:44] LABS: BACTERIA,URINE 3+ /HPF (None Seen); RBC,URINE 21-50 /HPF (0-2); SQUAMOUS EPITHELIAL CELL,UR Few /HPF (None Seen)
[2021-08-18] MEDS ORDERED: CEFTRIAXONE 1GM BAG (ER ONLY) 50 ML IV ONE (23:53)
[2021-08-19] MEDS ORDERED: CEFTRIAXONE 1GM BAG (ER ONLY) 1 GM/50 ML PIGGYBACK IV ONE
--- NOTE | 2021-08-19 01:00 | NUR ---
pt sleeping, attached to monitor and pox
--- NOTE | 2021-08-19 02:00 | NUR ---
Patient is resting comfortably in bed with eyes closed. Easily aroused. VSS
--- NOTE | 2021-08-19 03:00 | NUR ---
pt sleeping, breathing evenly and unlabored. vss
--- NOTE | 2021-08-19 04:16 | NUR ---
Patient is resting comfortably in bed with eyes closed. Easily aroused. VSS
--- NOTE | 2021-08-19 06:05 | NUR ---
Patient is resting comfortably in bed with eyes closed. Easily aroused. VSS
[2021-08-19] MEDS ORDERED: ONDANSETRON HCL/PF 4 MG/2 ML VIAL IVP PRN (07:30)
[2021-08-19] MEDS ORDERED: ACETAMINOPHEN 325 MG TABLET PO PRN (07:30)
[2021-08-19] MEDS ORDERED: DEXTROSE 50%-WATER 50 ML DISP.SYRIN IV PRN (07:30)
--- NOTE | 2021-08-19 08:13 | NUR ---
ROOM 101
--- NOTE | 2021-08-19 08:27 | NUR ---
REPORT GIVEN TO NURSE RAJAN
--- NOTE | 2021-08-19 08:28 | NUR ---
THE PATIENT IS TRANSFERED TO ASSIGNED BED IN STABLE CONDITION AND PER POLICY.
--- NOTE | 2021-08-19 08:30 | NUR ---
LOG GRADER NOTES RECEIVED PT FROM ER, A/O X1 ALBANIAN SPEAKING ON 2L NC WITH O2 SATURATION OF 96%, HR 90, TEMP 98.6, AND BP 118/56. PT IS ON BEDREST WITH BILATERAL UPPER EXTREMITY WEAKNESS, AND SEVERE WEAKNESS TO BILATERAL LOWER EXTREMITIES. PT HAS A LFA 20G, FLUSHED, PATENT, AND IN TACT. URINE LAB RESULTS PENDING. SAFETY MEASURES IN PLACE WITH BED IN LOWEST LOCKED POSITION, CALL LIGHT WITHIN REACH AND ALL NEEDS ATTENDED AT THIS TIME.
[2021-08-19] MEDS ORDERED: MEGE400O4 PO (12:26)
[2021-08-19] MEDS ORDERED: FLUT10.62 IH (12:26)
[2021-08-19] MEDS ORDERED: LACT-179 PO (12:26)
[2021-08-19] MEDS: BLOOD SUGAR DIAGNOSTIC 1 EACH STRIP IN SCH ×3 (12:28→22:03)
[2021-08-19 13:00] VITALS: BP 111/63
[2021-08-19 17:00] VITALS: BP 103/61
--- NOTE | 2021-08-19 18:45 | NUR ---
COLLAR STARCHER CLOSING NOTES PT UNABLE TO EAT DINNER DUE TO LOSS OF APPETITE. WAS ABLE TO EAT 75% OF LUNCH TRAY. PT IS ON A TELE MONITOR WITH HR OF 86. NO COMPLAINTS OF PAIN OR SIGNS OF RESPIRATORY DISTRESS. PT ABLE TO SPEAK WITH SONSARITA ON THE PHONE. SAFETY MEASURES IN PLACE WITH BED IN LOWEST LOCKED POSITION, CALL LIGHT WITHIN REACH AND BED ALARM ON.
--- NOTE | 2021-08-19 19:20 | NUR ---
RN NOTE RECEIVED PATIENT IN BED CONFUSED KENYAN SPEAKING ON 2L OXYGEN VIA NASAL CANNULA O2:98% IV SITE IS ON LEFT FOREARM INTACT PATENT,INCONTINENT TO BOWEL/BLADDER SAFETY MEASURE IMPLEMENT BED IN LOW POSITION AND LOCKED CONTINUE TO MONITOR.
[2021-08-19 21:00] VITALS: BP 122/59
[2021-08-19] MEDS: INSULIN REGULAR, HUMAN 100 UNIT/ML 3 ML VIAL SQ PRN (22:04)
--- NOTE | 2021-08-19 22:04 | NUR ---
RN NOTE BLOOD SUGAR IS 94 NOT REQUIRED INSULIN CONTINUE TO MONITOR.
[2021-08-19] MEDS: CEFTRIAXONE 1 G in IV D5W 50 ML IV SCH (22:26)
[2021-08-20 01:00] VITALS: BP 112/50
[2021-08-20 05:00] VITALS: BP 157/81
--- NOTE | 2021-08-20 06:43 | NUR ---
RN NOTE PATIENT REMAINS ON CONFUSED FIJIAN SPEAKING ON 2L OXYGEN VIA NASAL CANNULA O2:98%,NO SOB NOT ACUTE DISTRESS NOTED IV SITE IS ON LEFT FOREARM INTACT PATENT,ALL DUE MEDS GIVEN MD ORDERED KEPT CLEAN AND DRY ALL THE TIME,ENDORSE NEXT COMING SHIFT FOR CONTINUATION OF CARE.
[2021-08-20 07:14] LABS: BASOPHILS % (AUTO) 0.3 % (0.0-2.0); EOSINOPHILS % (AUTO) 1.6 % (0.0-6.0); HEMATOCRIT 38 % (33-45); HEMOGLOBIN 12.4 g/dL (11.5-14.8); LYMPHOCYTES # (AUTO) 3.3 K/uL (0.8-4.8); MEAN CORPUSCULAR HGB CONC 33 g/dl (31.0-36.0); MEAN CORPUSCULAR VOLUME 95 fL (82-100); MONOCYTES % (AUTO) 7.8 % (2.0-12.0); NEUTROPHILS # (AUTO) 8.7 K/uL (1.8-8.9); NEUTROPHILS % (AUTO) 65.3 % (43.0-81.0); PLATELET COUNT (AUTO) 255 K/uL (150-450); RED BLOOD CELL COUNT(AUTO) 3.97 MIL/uL (4.0-5.2); WHITE BLOOD COUNT (AUTO) 13.4 K/uL (4.3-11.0)
--- NOTE | 2021-08-20 07:47 | NUR ---
NURSE OPENING NOTE RECEIVE REPORT FROM OUT GOING NURSE. PATIENT IN STABLE CONDITION. 07:30 ACCU-CHEK IS 94. A/O X1. WILL FOLLOW UP MORNING LABS. SAFETY MEASURE IN PLACE. BED LOCK IN THE LOWEST POSITION WITH HOB ELEVATED. 3 SIDE RAIL UP. CALL LIGHT WITHIN REACH. WILL CONTINUE TO MONITOR.
[2021-08-20] MEDS: BLOOD SUGAR DIAGNOSTIC 1 EACH STRIP IN SCH ×4 (08:00→22:58)
[2021-08-20 09:00] VITALS: BP 133/80
[2021-08-20 09:07] LABS: CALCIUM, SERUM 8.7 mg/dL (8.5-10.1); CREATININE 0.7 mg/dL (0.6-1.3); PHOSPHORUS 3.1 mg/dL (2.5-4.9); POTASSIUM 3.4 mmol/L (3.5-5.1)
[2021-08-20 13:00] VITALS: BP 126/82
[2021-08-20 17:00] VITALS: BP 126/82
--- NOTE | 2021-08-20 19:25 | NUR ---
NURSE CLOSING NOTE PATIENT IN STABLE CONDITION. DID NOT EAT THROUGHOUT THE DAY. MONITOR GLUCOSE AND LABS. SAFETY MEASURE IN PLACE. BED ON LOWEST POSITION WITH HOB ELEVATED AND 3 SIDE RAIL UP. CALL LIGHT WITHIN REACH. WILL CONTINUE TO MONITOR AND GIVE REPORT TO ON COMING NURSE.
[2021-08-20 20:00] VITALS: BP 122/61
[2021-08-20] MEDS: CEFTRIAXONE 1 G in IV D5W 50 ML IV SCH (21:42)
[2021-08-20] MEDS: INSULIN REGULAR, HUMAN 100 UNIT/ML 3 ML VIAL SQ PRN (22:58)
--- NOTE | 2021-08-21 03:45 | NUR ---
RN notes In bed resting comfortably with no distress noted. Breathing even and unlabored. On 2lpm via nasal cannula well tolerated. No complaint of pain or discomfort. Alert and oriented with confusion. Able to communicate needs verbally. Vital signs wnl. Kept clean and comfortable.
[2021-08-21 04:00] VITALS: BP 157/81
[2021-08-21 06:40] LABS: BASOPHILS # (AUTO) 0.1 K/uL (0.0-0.2); BASOPHILS % (AUTO) 0.6 % (0.0-2.0); EOSINOPHILS % (AUTO) 1.5 % (0.0-6.0); HEMATOCRIT 34 % (33-45); HEMOGLOBIN 11.7 g/dL (11.5-14.8); LYMPHOCYTES # (AUTO) 2.7 K/uL (0.8-4.8); LYMPHOCYTES % (AUTO) 23.7 % (20.0-44.0); MEAN CORPUSCULAR HGB CONC 34 g/dl (31.0-36.0); MEAN CORPUSCULAR VOLUME 94 fL (82-100); MONOCYTES % (AUTO) 8.9 % (2.0-12.0); NEUTROPHILS # (AUTO) 7.5 K/uL (1.8-8.9); NEUTROPHILS % (AUTO) 65.3 % (43.0-81.0); PLATELET COUNT (AUTO) 245 K/uL (150-450); RED BLOOD CELL COUNT(AUTO) 3.65 MIL/uL (4.0-5.2); WHITE BLOOD COUNT (AUTO) 11.5 K/uL (4.3-11.0)
[2021-08-21 06:57] LABS: ALANINE AMINOTRANSFERASE 25 U/L (12-78); ALBUMIN 1.7 g/dL (3.4-5.0); ALKALINE PHOSPHATASE 501 U/L (46-116); ASPARTATE AMINOTRANSFERASE 50 U/L (15-37); CALCIUM, SERUM 8.1 mg/dL (8.5-10.1); CARBON DIOXIDE 26 mmol/L (21-32); CHLORIDE 106 mmol/L (98-107); CREATININE 0.5 mg/dL (0.6-1.3); GLUCOSE 86 mg/dL (74-106); MAGNESIUM 1.9 mg/dL (1.8-2.4); PHOSPHORUS 2.8 mg/dL (2.5-4.9); POTASSIUM 3.1 mmol/L (3.5-5.1); SODIUM SERUM 139 mmol/L (136-145); TOTAL PROTEIN, SERUM 7.1 g/dL (6.4-8.2); UREA NITROGEN, BLOOD 13 mg/dL (7-18)
[2021-08-21 08:00] VITALS: BP 118/66
--- NOTE | 2021-08-21 08:00 | NUR ---
RN MORNING NOTE PT RECEIVED IN BED WITH HOB AT 30 DEGREES. PT IS ON 2L O2 VIA NC SPO2 95% WITH NO SIGNS OF LABORED BREATHING OR RESPIRATORY DISTRESS. PT IS A/OX1 AND CHINESE SPEAKING ONLY. PT IS ON CARDIAC LOW FAT DIET. LFA 20 IS PATENT AND INTACT WITH NO SIGNS OF INFILTRATION. BED IS LOCKED IN THE LOWEST POSITION, 3 GUARD RAILS RAISED, CALL BYRNES WITHIN REACH, AND ALL HOSPITAL SAFETY PRECAUTIONS ARE IN PLACE. WILL CONTINUE TO MONITOR THROUGHOUT MY SHIFT.
[2021-08-21] MEDS: BLOOD SUGAR DIAGNOSTIC 1 EACH STRIP IN SCH ×4 (08:21→23:17)
[2021-08-21] MEDS: POTASSIUM CHLORIDE 20 MEQ TAB.PRT.SR PO SCH ×2 (09:12→09:13)
--- NOTE | 2021-08-21 09:30 | NUR ---
IZAIAH NOTES MITRA MEDS GIVEN Addendum: 08/21/21 at 1152 by JOSÉ LUIS ELIZALDE RN CORRECTION: DR. PRAVIN UNGER NOTIFIED ABOUT PATIENT'S MEDICATIONS FOR RECONCILIATION.
[2021-08-21] MEDS: ENSURE ENLIVE 237 ML LIQUID (VANILLA) PO SCH ×2 (09:57→16:42)
[2021-08-21 16:00] VITALS: BP 104/63
[2021-08-21] MEDS: INSULIN REGULAR, HUMAN 100 UNIT/ML 3 ML VIAL SQ PRN ×2 (16:56→23:16)
--- NOTE | 2021-08-21 18:28 | NUR ---
RN CLOSING NOTE PT IS LYING IN BED COMFORTABLY WITH HOB AT 30 DEGREES. PT CONTINUES TO BE ON 2L O2 VIA NC SPO2 96% WITH NO SIGNS OF LABORED BREATHING OR RESPIRATORY DISTRESS. PT IS A/OX1 AND CROATIAN SPEAKING ONLY. PT IS NOW ON 2GM SODIUM DIET. LFA 20 IS PATENT AND INTACT WITH NO SIGNS OF INFILTRATION. BED IS LOCKED IN THE LOWEST POSITION, 3 GUARD RAILS RAISED, CALL BYRNES WITHIN REACH, AND ALL HOSPITAL SAFETY PRECAUTIONS ARE IN PLACE. ALL DUE MEDICATIONS GIVEN AND PT REMAINED STABLE THROUGHOUT SHIFT. WILL ENDORSE TO DIESEL ENGINE TESTER NURSE FOR RAFAELA.
[2021-08-21 20:00] VITALS: BP 123/73
--- NOTE | 2021-08-21 20:00 | NUR ---
MS RN NOTES. RECEIVED PATIENT IN BED AWAKE, A/O X1. ON 2LITERS OF O2 VIA NC SATING 97% WITH LEFT FA g20 INTACT AND PATENT. V/S STABLE AFEBRILE ALL DUE MEDS GIVEN ORDERED ALL NEEDS ATTENDED TOO . SAFETY MEASURE IN PLACE. BED LOCK IN THE LOWEST POSITION WITH HOB ELEVATED. 1/2 SIDE RAIL UP. CALL LIGHT WITHIN REACH. WILL CONTINUE TO MONITOR PTS .
[2021-08-21] MEDS: CEFTRIAXONE 1 G in IV D5W 50 ML IV SCH (23:19)
--- NOTE | 2021-08-21 23:19 | NUR ---
ms rn notes Blood sugar at 10pm is 141mg/dl 2 units of regular insulin given per sliding scale .
[2021-08-22 04:00] VITALS: BP 118/78
--- NOTE | 2021-08-22 06:39 | NUR ---
NURSE CLOSING NOTE PATIENT IN STABLE CONDITION. ON 2 GRAMS SODIUM . V/S STABLE AFEBRILE SAFETY MEASURE IN PLACE. BED ON LOWEST POSITION WITH HOB ELEVATED AND 1/2 SIDE RAIL UP. CALL LIGHT WITHIN REACH. WILL CONTINUE TO MONITOR , WILL ENDORSE TO RN DAY SHIFT FOR CONTINUITY OF CARE.
--- NOTE | 2021-08-22 07:32 | NUR ---
RN OPENING NOTES Patient seen comfortably lying in bed, no apparent distress noted, no SOB, breathing even and unlabored, no grimacing noted. Safety precautions in place, brakes locked, side rails up X 2, call light left within reach, will monitor closely for any changes.
[2021-08-22] MEDS: BLOOD SUGAR DIAGNOSTIC 1 EACH STRIP IN SCH ×2 (07:52→12:04)
[2021-08-22 08:00] VITALS: BP 120/78
[2021-08-22] MEDS: ENSURE ENLIVE 237 ML LIQUID (VANILLA) PO SCH (08:02)
[2021-08-22 08:15] LABS: CALCIUM, SERUM 8.5 mg/dL (8.5-10.1); CREATININE 0.7 mg/dL (0.6-1.3); POTASSIUM 3.5 mmol/L (3.5-5.1)
[2021-08-22 12:00] VITALS: BP 121/81
[2021-08-22] MEDS: INSULIN REGULAR, HUMAN 100 UNIT/ML 3 ML VIAL SQ PRN (12:03)
--- NOTE | 2021-08-22 16:20 | NUR ---
Patient to be discharged to [facility] today, no apparent distress noted, appears comfortable, no grimacing. Patient made aware of the situation, patient unable to sign 2 RNs signed all discharge paperworks, all belongings taken, inventory list signed by 2 RNs. Called [facility] (phone [phone]), spoke to Nicole (receptionist nurse) and she said to call back because glazing department supervisor is a little busy right now, called back after 30mins, nobody answered, attempted to call multiple times but was unsuccessful, charge nurse made aware, [facility] transportation made aware. Skin assessment done prior to discharge, noted with skin discolorations, photos taken and filed in the chart. Peripheral IV removed prior to discharge and covered with dry dressing. Name wristband removed prior to discharge. [facility] transportation picked up patient via [facility], left unit at 1620pm, stable condition, exitcare documents handed to [facility] transportation staff. [employer] [facility] (phone: [phone]) will tow picker patient around 9pm vic, spoke to Tima, will endorse to next shift for continuity of care.
== END 2021-08-22 16:30 | DRG 689 ==
LOC: ER 19:34 → TRANSITION 08-19 06:15 → TELE1 08-19 08:22 → MEDSG1 08-20 03:05
DX: N39.0 Urinary tract infection, site not specified (principal); G93.41 Metabolic encephalopathy; E44.0 Moderate protein-calorie malnutrition; I10 Essential (primary) hypertension; G30.9 Alzheimer's disease, unspecified; F41.0 Panic disorder [episodic paroxysmal anxiety]; F02.80 Dementia in other diseases classified elsewhere, unspecified severity, without behavioral disturbance, psychotic disturbance, mood disturbance, and anxiety; Z20.822 Contact with and (suspected) exposure to COVID-19; Z86.718 Personal history of other venous thrombosis and embolism; Z96.653 Presence of artificial knee joint, bilateral; Z79.51 Long term (current) use of inhaled steroids; Z79.899 Other long term (current) drug therapy; Z96.649 Presence of unspecified artificial hip joint; E11.9 Type 2 diabetes mellitus without complications
CPT/HCPCS: 36415; 70450-TC; 71045-TC; 80048-TC; 80053-TC; 80061-TC; 81001; 82962-TC; 83735-TC; 84100-TC; 84484-TC; 85025-TC; 87081-TC; 87086-TC; C9803; G0378; J0696; J1815; J7030; J7050; J7060; U0003